=== PATIENT | male | born 1970 | race Caucasian/White ===

== ENCOUNTER 2021-02-04 09:27 | Inpatient (IN) | payer BC ==
[~2021-02-04] VITALS: Ht 182.9 cm; Wt 131.0 kg
[~2021-02-04 09:27] MED LIST: adenosine 3mg/ml 2ml vial IV ONE; atropine 0.1mg/ml 10ml syringe ONE; epiNEPHrine 0.1mg/ml 10ml syringe ONE; sodium bicarbonate (8.4%) 1 mEq/ml syringe ONE
[2021-02-04] MEDS ORDERED: ALBUTEROL INHALER 1 PUFF/90 MCG INHALER IH PRN ×2 (09:40→10:20)
[2021-02-04] MEDS ORDERED: normal saline 1000ML IV soln IVB ONE ×2 (09:40→10:50)
[2021-02-04 10:11] LABS: BASOPHILS % (AUTO) 0.2 % (0-1); EOSINOPHILS % (AUTO) 0 % (0-6); LYMPHOCYTES # (AUTO) 0.3 X10'3 (1.1-4.8); LYMPHOCYTES % (AUTO) 7.3 % (21-51); MEAN CORPUSCULAR HEMOGLOBIN 33.9 PG (27.0-31.0); MEAN CORPUSCULAR HGB CONC 33.6 g/dL (33.0-36.5); MEAN CORPUSCULAR VOLUME 101.2 FL (78-98); MEAN PLATELET VOLUME 10.8 FL (7.4-10.4); MONOCYTES # (AUTO) 0.4 X10'3 (0-0.9); MONOCYTES % (AUTO) 9.2 % (2-12); NEUTROPHILS # (AUTO) 3.6 X10'3 (1.8-7.7); NEUTROPHILS % (AUTO) 83.3 % (42-75); PLATELET COUNT 94 X10'3 (140-440); RED BLOOD COUNT 6.91 X10'6 (4.70-6.10); WHITE BLOOD COUNT 4.3 X10'3 (4.5-11.0)
--- NOTE | 2021-02-04 10:12 | NUR ---
RAPID COVID SWAB PERFORMED. O2 APPLIED AT 4 LPM/NC. PATIENT STILL SAT 88%. FAMILY INFORMED THAT WHEN HE GOES INSIDE, VISITORS ARE NOT ALLOWED WITH R/O OR + COVID PATIENTS. STATES THAT SHE WOULD LIKE TO SPEAK WITH THE DOCTOR ABOUT "HER DEMANDS" PRIOR TO HER GETTING A ROOM INSIDE.
[2021-02-04 10:33] LABS: ALANINE AMINOTRANSFERASE 57 U/L (12-78); ALBUMIN 2.9 G/DL (3.4-5.0); ALBUMIN/GLOBULIN RATIO 0.7 (1.1-1.5); ALKALINE PHOSPHATASE 54 IU/L (46-116); ANION GAP 14 (8-16); ASPARTATE AMINO TRANSFERASE 75 U/L (10-37); BILIRUBIN,TOTAL 0.9 MG/DL (0.1-1.0); BLOOD UREA NITROGEN 26 MG/DL (7-18); BUN/CREATININE RATIO 13.1 (5.4-32.0); C-REACTIVE PROTEIN 15.44 MG/DL (0.0-0.5); CALCIUM 8.5 MG/DL (8.5-10.1); CHLORIDE 96 MMOL/L (99-107); CREATININE 1.98 MG/DL (0.60-1.10); GLUCOSE 178 MG/DL (70-104); POTASSIUM 4.2 MMOL/L (3.5-5.1); SODIUM 135 MMOL/L (135-145); TOTAL CARBON DIOXIDE 25.1 MMOL/L (24-32); TOTAL PROTEIN 7.2 G/DL (6.4-8.2); eGFR 36 ML/MIN
[2021-02-04 10:38] LABS: ABG BASE EXCESS -4.5 mmol/L (-2.0-2.0); ABG HCO3 16.3 mmol/L (22.0-26.0); ABG OXYGEN SATURATION 91.4 % (94-97); ABG PCO2 (T) 23.9 mmHg (35.0-48.0); ABG PO2 (T) 60.8 mmHg (75.0-100.0); ALLEN'S TEST POSITIVE; FCOHb 0.3 % (0.0-3.9); FLOW 4 L/min; FMetHb 0.3 % (0.0-1.5); FO2Hb 90.9 % (94-97); TOTAL HEMOGLOBIN 21.6 G/dl (14.0-18.0)
[2021-02-04 10:48] LABS: HEMATOCRIT 69.9 % (42.0-52.0); HEMOGLOBIN 23.5 g/dl (14.0-17.9)
[2021-02-04] MEDS ORDERED: DEXAMETHASONE 6 MG TABLET PO SCH (11:54)
[2021-02-04 12:11] LABS: ANISOCYTOSIS FEW; LARGE PLATELETS FEW; PLATELET ESTIMATE DECREASED
[2021-02-04] MEDS ORDERED: MULT-1085 PO (12:36)
--- NOTE | 2021-02-04 12:45 | NUR ---
PATIENT HAS ROOM AVAILABLE INSIDE THE ER, BUT FAMILY STATES THAT THEY WILL PREFER TO HAVE HIM SIT OUTSIDE IN RAP UNTIL THEY GET TO SPEAK WITH THE FURNITURE REPAIR TECHNICIAN. PATIENT REMAINS ON 6LPM/NC WITH O2 SATS 92%.
--- NOTE | 2021-02-04 13:22 | NUR ---
ICU UNIX MANAGER IS HERE TO SPEAK WITH PATIENT AND FAMILY IN THE RAP AREA OF ER.
[2021-02-04] MEDS ORDERED: potassium Cl 40MEQ/1/2NS 520ml 520 ML IV PRN ×2 (13:45)
[2021-02-04] MEDS ORDERED: magnesium hydroxide 30ml (MOM) UD suspension PO PRN (13:45)
[2021-02-04] MEDS ORDERED: ondansetron/PF 4mg/2ml inj IV PRN (13:45)
[2021-02-04] MEDS ORDERED: morphine 2 MG/ML inj. syringe IV PRN (13:45)
[2021-02-04] MEDS ORDERED: acetaminophen 325mg tablet PO PRN ×2 (13:45)
[2021-02-04] MEDS ORDERED: morphine 4 MG/ML inj SYRINge IV PRN (13:45)
[2021-02-04] MEDS: K, MAG and/or Phos replacement - Verify level? MC SCH (13:45)
[2021-02-04 14:28] LABS: ABG HCO3 20.5 mmol/L (22.0-26.0); FLOW 10 L/min; TOTAL HEMOGLOBIN > 22.0 G/dl (14.0-18.0)
[2021-02-04] MEDS: normal saline 500ml IV soln 500 ML IV SCH ×3 (14:45→16:45)
[2021-02-04] MEDS ORDERED: enoxaparin 100mg/ml syringe SUBCUT ONE (14:45)
[2021-02-04] MEDS: normal saline 1000ml 1,000 ML IV SCH ×2 (14:45→22:30)
[2021-02-04] MEDS ORDERED: enoxaparin 80mg/0.8ml syringe SUBCUT ONE (15:00)
[2021-02-04] MEDS ORDERED: enoxaparin 30mg/0.3ml syringe SUBCUT ONE (15:05)
[2021-02-04] MEDS ORDERED: LORazepam 2 mg/ml vial IM ONE ×2 (17:25)
[2021-02-04 19:48] LABS: ABG HCO3 18.6 mmol/L (22.0-26.0); ABG PCO2 (T) 41.3 mmHg (35.0-48.0); ABG PO2 (T) 82.3 mmHg (75.0-100.0); FLOW 60 L/min; PATIENT TEMPERATURE 39.8; TOTAL HEMOGLOBIN > 22.0 G/dl (14.0-18.0)
[2021-02-04] MEDS: insulin glargine (Lantus) pen - multi-dose SQ SCH (21:00)
--- NOTE | 2021-02-04 21:15 | NUR ---
Note maurizioismael in EDM - 02/04/21 at 2118 by PAMELLA pt combative and confused, pulling at lines. Currently have patient on high flow tower at 50Lpm and non re-breather 15Lpm. Pt still having difficulty breathing, abg results are favorable. Pt not tolerating bi pap.
--- NOTE | 2021-02-04 21:18 | NUR ---
pt combative and confused, pulling at lines. Currently have patient on high flow tower at 50Lpm and non re-breather 15Lpm. Pt still having difficulty breathing, abg results are favorable. Pt not tolerating bi pap.
--- NOTE | 2021-02-04 21:27 | NUR ---
TELEPHONED ICU MD TO INFORM HIM THAT A DNI ORDER IS NEEDED. HE WILL REVIEW THE CHART IT WAS INFORMED TO HIM THAT THE EARLIER MD HAS IT IN HIS NOTES THAT HE SPOKE WITH THE AND THE DOESN'T WANT INTUBATION. HE SAID TO TAKE PT TO ICU RIGHT NOW.
[2021-02-04] MEDS ORDERED: dexmedetomidin/NS 400mcg/100ml 100 ML IV SCH (22:50)
[2021-02-04 23:00] VITALS: BP 140/66
[2021-02-04] MEDS ORDERED: fentaNYL/PF 50MCG/1 ML 2ML syringe IV PRN (23:00)
[2021-02-04] MEDS ORDERED: rocuronium 10mg/ml inj IV ONE (23:00)
[2021-02-04] MEDS: propofol 1000mg/100ml bottle 100 ML IV SCH (23:00)
[2021-02-04] MEDS ORDERED: etomidate 2mg/ml inj. IV ONE (23:00)
[2021-02-04] MEDS ORDERED: propofol 1000mg/100ml bottle 100 ML IV SCH (23:00)
[2021-02-04] MEDS ORDERED: dexmedetomidin/NS 400mcg/100ml 100 ML IV PRN (23:00)
[2021-02-04] MEDS ORDERED: propofol 1000mg/100ml bottle 100 ML IV ONE (23:00)
[2021-02-04 23:30] VITALS: BP 155/93
[2021-02-04] MEDS ORDERED: ringers solution, lacted 1,000 ML IV SCH (23:45)
[2021-02-05] VITALS (28 sets, daily range): BP systolic 69–157; BP diastolic 6–92
[2021-02-05] MEDS ORDERED: azithromycin/NS 500mg/250ml 250 ML IV SCH
[2021-02-05] MEDS: CefTRIAXone/D5W-Rocephin 1gm 50 ML IV SCH
[2021-02-05 00:25] LABS: ABG BASE EXCESS -7.5 mmol/L (-2.0-2.0); ABG HCO3 25.2 mmol/L (22.0-26.0); ABG PCO2 (T) 82.7 mmHg (35.0-48.0); ABG PO2 (T) 53.4 mmHg (75.0-100.0); FCOHb 0.3 % (0.0-3.9); FMetHb 0.3 % (0.0-1.5); FO2Hb 72.6 % (94-97); PEEP 10 cm H2O; RESPIRATORY RATE 24 b/min; TIDAL VOLUME 450 mL; TOTAL HEMOGLOBIN > 22.0 G/dl (14.0-18.0)
[2021-02-05 00:50] LABS: BASOPHILS % (AUTO) 0.1 % (0-1); EOSINOPHILS % (AUTO) 0 % (0-6); LYMPHOCYTES # (AUTO) 0.3 X10'3 (1.1-4.8); LYMPHOCYTES % (AUTO) 5.8 % (21-51); MEAN CORPUSCULAR HEMOGLOBIN 34.8 PG (27.0-31.0); MEAN CORPUSCULAR HGB CONC 33.7 g/dL (33.0-36.5); MEAN PLATELET VOLUME 10.4 FL (7.4-10.4); MONOCYTES # (AUTO) 0.4 X10'3 (0-0.9); MONOCYTES % (AUTO) 8.4 % (2-12); NEUTROPHILS # (AUTO) 4.4 X10'3 (1.8-7.7); NEUTROPHILS % (AUTO) 85.7 % (42-75); PLATELET COUNT 100 X10'3 (140-440); RED CELL DISTRIBUTION WIDTH 14.1 % (11.5-14.5); WHITE BLOOD COUNT 5.1 X10'3 (4.5-11.0)
[2021-02-05 01:06] LABS: D-DIMER 2.18 MG/L FEU (0-0.50)
[2021-02-05] MEDS: FENTANYL-0.9 % NACL/PF 100 ML IV PRN ×3 (01:11→16:18)
[2021-02-05] MEDS: NORepinephrine 8mg/ 250ml NS 250 ML IV PRN ×2 (01:12→14:01)
[2021-02-05 01:26] LABS: HEMOGLOBIN 22.2 g/dl (14.0-17.9)
[2021-02-05 01:27] LABS: HEMATOCRIT 65.9 % (42.0-52.0)
[2021-02-05 01:43] LABS: ALANINE AMINOTRANSFERASE 51 U/L (12-78); ALBUMIN 2.7 G/DL (3.4-5.0); ALBUMIN/GLOBULIN RATIO 0.6 (1.1-1.5); ALKALINE PHOSPHATASE 61 IU/L (46-116); ANION GAP 11 (8-16); ASPARTATE AMINO TRANSFERASE 86 U/L (10-37); BILIRUBIN,TOTAL 0.8 MG/DL (0.1-1.0); BLOOD UREA NITROGEN 40 MG/DL (7-18); BUN/CREATININE RATIO 14.7 (5.4-32.0); C-REACTIVE PROTEIN 15.42 MG/DL (0.0-0.5); CALCIUM 7.3 MG/DL (8.5-10.1); CHLORIDE 101 MMOL/L (99-107); CREATININE 2.72 MG/DL (0.60-1.10); GLUCOSE 201 MG/DL (70-104); SODIUM 138 MMOL/L (135-145); TOTAL CARBON DIOXIDE 25.9 MMOL/L (24-32); TRIGLYCERIDES 106 MG/DL (20-135); eGFR 25 ML/MIN
[2021-02-05 01:58] LABS: FERRITIN 1678 NG/ML (26-388); LACTATE DEHYDROGENASE 707 U/L (85-227)
[2021-02-05 02:00] LABS: POTASSIUM 6.4 MMOL/L (3.5-5.1)
[2021-02-05] MEDS ORDERED: ringers solution, lacted 1,000 ML IV ONE (03:00)
[2021-02-05] MEDS ORDERED: sodium bicarbonate (8.4%) 1 mEq/ml syringe IV ONE (03:05)
[2021-02-05 03:24] LABS: ABG HCO3 18.5 mmol/L (22.0-26.0); ABG PCO2 (T) 53.7 mmHg (35.0-48.0); ABG PO2 (T) 43.3 mmHg (75.0-100.0); FCOHb 0.4 % (0.0-3.9); FMetHb 0.1 % (0.0-1.5); FO2Hb 66.7 % (94-97); PEEP 12 cm H2O; RESPIRATORY RATE 30 b/min; TIDAL VOLUME 500 mL; TOTAL HEMOGLOBIN > 22.0 G/dl (14.0-18.0)
[2021-02-05] MEDS: vasopressin inj. 40 UNIT in normal saline 50ml IV soln 38 ML IV SCH (04:30)
--- NOTE | 2021-02-05 06:00 | NUR ---
Patient arrived to floor about 22:45 on Bi-pap @ 100%. Patients SpO2 70-90% Patient intubated at 2308 by ER MD. patient continued to struggle with oxygenation. Patient required line placement to give eds and evaluate fluid status. First line in groin unsuccessful and replaced in right I.J. Upon xray of lines a pnumothorax noted. Er MD placed chest tube. end of shift patients SpO2 remains in 70s. Report given to Cali DIEGO. Spoke to at 0730.
[2021-02-05] MEDS: normal saline 1000ml 1,000 ML IV SCH ×4 (06:45→16:51)
[2021-02-05] MEDS ORDERED: dextrose ORAL solution 15 GM/59 ML bottle PO PRN ×2 (07:00)
[2021-02-05] MEDS ORDERED: glucagon, human recombinant 1mg kit SUBCUT PRN (07:00)
[2021-02-05] MEDS ORDERED: dextrose 50%-water 50ml dispensing syringe IV PRN ×2 (07:00)
[2021-02-05 07:10] LABS: BASOPHILS % (AUTO) 0.2 % (0-1); EOSINOPHILS % (AUTO) 0 % (0-6); LYMPHOCYTES # (AUTO) 0.4 X10'3 (1.1-4.8); LYMPHOCYTES % (AUTO) 3.4 % (21-51); MEAN CORPUSCULAR HEMOGLOBIN 34.7 PG (27.0-31.0); MEAN CORPUSCULAR HGB CONC 33.7 g/dL (33.0-36.5); MEAN CORPUSCULAR VOLUME 102.8 FL (78-98); MEAN PLATELET VOLUME 10.1 FL (7.4-10.4); MONOCYTES # (AUTO) 0.6 X10'3 (0-0.9); MONOCYTES % (AUTO) 5.7 % (2-12); NEUTROPHILS # (AUTO) 9.6 X10'3 (1.8-7.7); NEUTROPHILS % (AUTO) 90.7 % (42-75); PLATELET COUNT 112 X10'3 (140-440); RED BLOOD COUNT 6.21 X10'6 (4.70-6.10); RED CELL DISTRIBUTION WIDTH 14.2 % (11.5-14.5); WHITE BLOOD COUNT 10.6 X10'3 (4.5-11.0)
[2021-02-05 07:19] LABS: HEMOGLOBIN 21.5 g/dl (14.0-17.9)
[2021-02-05 07:20] LABS: HEMATOCRIT 63.8 % (42.0-52.0)
[2021-02-05] MEDS: insulin Lispro (HumaLOG) vial - multi-dose SQ SCH ×2 (07:21→13:53)
[2021-02-05] MEDS: dexamethasone 4mg/ml inj IV SCH ×2 (07:21→20:05)
[2021-02-05 07:22] LABS: ALBUMIN 2.2 G/DL (3.4-5.0); ANION GAP 13 (8-16); BLOOD UREA NITROGEN 48 MG/DL (7-18); BUN/CREATININE RATIO 17.4 (5.4-32.0); CALCIUM 6.6 MG/DL (8.5-10.1); CHLORIDE 103 MMOL/L (99-107); CREATININE 2.76 MG/DL (0.60-1.10); GLUCOSE 249 MG/DL (70-104); SODIUM 137 MMOL/L (135-145); TOTAL CARBON DIOXIDE 21.1 MMOL/L (24-32); TRIGLYCERIDES 92 MG/DL (20-135); eGFR 24 ML/MIN
[2021-02-05] MEDS ORDERED: famotidine 10mg/ml inj IV SCH (08:00)
[2021-02-05] MEDS: K, MAG and/or Phos replacement - Verify level? MC SCH (08:00)
[2021-02-05] MEDS: famotidine/PF 10 mg/ml inj IV SCH (08:54)
[2021-02-05] MEDS: propofol 1000mg/100ml bottle 100 ML IV SCH (08:55)
[2021-02-05] MEDS: dexmedetomidin/NS 400mcg/100ml 100 ML IV SCH ×4 (08:59→18:51)
[2021-02-05] MEDS: CISatracurium besylate inj. 100 MG in normal saline 100ml IV soln 90 ML IV PRN ×3 (09:00→15:14)
[2021-02-05 10:33] LABS: ABG BASE EXCESS -5.4 mmol/L (-2.0-2.0); ABG HCO3 20.2 mmol/L (22.0-26.0); ABG OXYGEN SATURATION 84.1 % (94-97); ABG PCO2 (T) 41.8 mmHg (35.0-48.0); FCOHb 0.3 % (0.0-3.9); FMetHb 0.5 % (0.0-1.5); FO2Hb 83.4 % (94-97); PATIENT TEMPERATURE 37.9; TOTAL HEMOGLOBIN 21.5 G/dl (14.0-18.0)
[2021-02-05] MEDS ORDERED: acetaminophen 325mg/10.15ml oral unit dose solution PO PRN (10:55)
--- NOTE | 2021-02-05 11:00 | NUR ---
Dr. Mancia notified about temperature of 40.5 degrees Celsius; orders for IV Tylenol and PO to follow. Patient also packed in ice. MD also aware of critical H/H and Potassium trending downwards; orders to continue monitoring. MD aware of improved pH, but low o2 saturation; will place patient on rotoprone bed.
[2021-02-05] MEDS ORDERED: acetaminophen 1,000mg/100ml IV 100 ML IV ONE (11:15)
[2021-02-05] MEDS ORDERED: bisacodyl 10mg suppository rectal RC ONE (11:20)
[2021-02-05 11:37] LABS: MEAN CORPUSCULAR HEMOGLOBIN 34.3 PG (27.0-31.0); MEAN CORPUSCULAR HGB CONC 33.6 g/dL (33.0-36.5); PLATELET COUNT 107 X10'3 (140-440); RED BLOOD COUNT 6.09 X10'6 (4.70-6.10); RED CELL DISTRIBUTION WIDTH 14.3 % (11.5-14.5); WHITE BLOOD COUNT 8.8 X10'3 (4.5-11.0)
[2021-02-05 11:41] LABS: HEMATOCRIT 62.1 % (42.0-52.0); HEMOGLOBIN 20.9 g/dl (14.0-17.9)
[2021-02-05] MEDS: midazolam 100mg in NS 100ml 100 ML IV PRN (12:08)
--- NOTE | 2021-02-05 12:16 | NUR ---
Initial: Pt admit for COVID with hypoxemic respiratory failure. Pt intubated and sedated at this time, documented with an OG tube in place though no TF consult at this time. TF recommendations below for if expected prolonged intubation and to receive nutrition support. Noted pt currently receiving Propofol at 3.57 mL/hr providing ~94 kcal/day at this rate. TF recommendations will be adjusted based on Propofol rate at the time of TF initiation IF to start TF. Noted pt with A1c 7.0% though no documented PMH of DM in EMR. Pt would benefit from DM education following extubation once stable though will need official DM diagnosis by physician prior to RD education IF this is a new diagnosis. Pt with a low Abram of 9, with generalized 1+ trace edema and skin intact per physical assessment. No documented BM since admit, pt started on routine bowel care today. Will continue to follow closely. Recommendations: 1) IF TF, continuous Vital High Protein with goal rate of 90 mL/hr. To begin at 30 mL/hr and advance by 20 mL Q8H as tolerated to goal rate. Once at goal to provide 2160 mL total volume/day, 2160 kcal, 189 g protein, and 1806 mL water 2) IF TF, monitor Propofol rate and adjust TF recommendations as appropriate 3) IF TF, monitor serum Na for water flush recommendations 4) IF TF, prealbumin q Monday/, daily scaled weights 5) Routine bowel care 6) DM education once stable following extubation, A1c 7.0%. Will need official DM dx by physician prior to RD education IF this is a new dx. Currently no PMH of DM in EMR Addendum: 02/05/21 at [address] Amended: Links added.
[2021-02-05] MEDS: bisacodyl 10mg suppository rectal RC SCH (12:25)
[2021-02-05 13:49] LABS: HIV ANTIBODY 1&2 RAPID NON-REACTIVE (Neg)
[2021-02-05] MEDS: enoxaparin 40mg/0.4ml syringe SQ SCH ×2 (13:54→20:06)
--- NOTE | 2021-02-05 15:30 | NUR ---
Dr. Mancia rounding on patient and aware temperature remains at 40.1 despite IV Tylenol and ice packing. Orders for cooling blanket and continue PO Tylenol. Also, MD aware urine output 30-60ml/hour; orders for 500ml bolus; continue rechecking Lactic Acid until less than 2.0. Dr. Mancia also noting decreased o2 sat at 88%. MD at bedside to change PEEP to 15; no major changes noted in air-leak; orders to recheck ABG in 2h and check chest x-ray.
[2021-02-05] MEDS ORDERED: normal saline 500ml IV soln 500 ML IV ONE (15:50)
--- NOTE | 2021-02-05 16:00 | NUR ---
Cooling blanket placed on patient
[2021-02-05 16:53] LABS: CLARITY,URINE TURBID (Clear); COLOR,URINE YELLOW (Yellow); PH,URINE 5.5 (4.8-8.0); UA COLLECTION TYPE FOLEY CATH
[2021-02-05 16:54] LABS: GLUCOSE, URINE NEGATIVE (Neg); KETONES,URINE NEGATIVE (Neg); LEUKOCYTE ESTERASE ,URINE NEGATIVE (Neg); NITRITES, URINE NEGATIVE (Neg); OCCULT BLOOD,URINE LARGE (Neg); PROTEIN,URINE 300 mg/dl (Neg); UROBILINOGEN,URINE 0.2 E.U/dL (0.2-1.0)
[2021-02-05 16:58] LABS: AMORPHOUS URATES 2+; BACTERIA,URINE FEW /HPF (Neg); MUCUS STRANDS MODERATE /LPF (Neg); SQUAMOUS EPITHELIAL CELL,UR FEW /LPF (FEW)
[2021-02-05 16:59] LABS: WAXY CASTS,URINE 0-3 /LPF (NEGATIVE)
[2021-02-05 17:26] LABS: ABG BASE EXCESS -3.8 mmol/L (-2.0-2.0); ABG HCO3 20.4 mmol/L (22.0-26.0); ABG OXYGEN SATURATION 87.9 % (94-97); ABG PCO2 (T) 41.2 mmHg (35.0-48.0); ABG PO2 (T) 70.1 mmHg (75.0-100.0); FCOHb 0.3 % (0.0-3.9); FMetHb 0.4 % (0.0-1.5); FO2Hb 87.3 % (94-97); PATIENT TEMPERATURE 40.3; RESPIRATORY RATE 30 b/min; TIDAL VOLUME 500 mL; TOTAL HEMOGLOBIN > 22.0 G/dl (14.0-18.0)
--- NOTE | 2021-02-05 18:03 | NUR ---
Family updated on recent findings of EF/A1C and plan for Rotoprone bed. Family agreeable and appreciates the update; still would like to hold off on Remdesivir.
--- NOTE | 2021-02-05 18:26 | NUR ---
Problems reprioritized. Patient report given, questions answered & plan of care reviewed with Nito DIEGO.
[2021-02-05] MEDS: lactobacillus rhamnosus 10,000 MMU CELLS/CAPSULE PO SCH (20:05)
[2021-02-05] MEDS: docusate sodium 100mg/10ml UD cup PO SCH (20:05)
[2021-02-05] MEDS ORDERED: acetaminophen 1,000mg/100ml IV 100 ML IV PRN (23:30)
[2021-02-06] VITALS (24 sets, daily range): BP systolic 80–126; BP diastolic 33–87
[2021-02-06] MEDS: NORepinephrine 8mg/ 250ml NS 250 ML IV PRN
[2021-02-06] MEDS: CefTRIAXone/D5W-Rocephin 1gm 50 ML IV SCH
[2021-02-06] MEDS ORDERED: propofol 1000mg/100ml bottle 100 ML IV ONE (00:04)
[2021-02-06] MEDS: midazolam 100mg in NS 100ml 100 ML IV PRN ×2 (01:00→16:58)
[2021-02-06] MEDS: dexmedetomidin/NS 400mcg/100ml 100 ML IV SCH ×3 (01:00→10:07)
[2021-02-06] MEDS: normal saline 1000ml 1,000 ML IV SCH ×3 (01:00→22:55)
[2021-02-06] MEDS: CISatracurium besylate inj. 100 MG in normal saline 100ml IV soln 90 ML IV PRN ×8 (02:00→21:04)
[2021-02-06] MEDS: mineral oil/petrolatum ophthal oint EACHEYE SCH ×4 (02:00→20:58)
[2021-02-06] MEDS: insulin Lispro (HumaLOG) vial - multi-dose SQ SCH ×5 (02:59→21:32)
[2021-02-06 03:30] LABS: BASOPHILS % (AUTO) 0 % (0-1); EOSINOPHILS % (AUTO) 0 % (0-6); LYMPHOCYTES # (AUTO) 0.4 X10'3 (1.1-4.8); LYMPHOCYTES % (AUTO) 5.7 % (21-51); MEAN CORPUSCULAR HEMOGLOBIN 34.2 PG (27.0-31.0); MEAN CORPUSCULAR HGB CONC 32.9 g/dL (33.0-36.5); MEAN CORPUSCULAR VOLUME 104.2 FL (78-98); MEAN PLATELET VOLUME 10.4 FL (7.4-10.4); MONOCYTES # (AUTO) 0.8 X10'3 (0-0.9); MONOCYTES % (AUTO) 10.1 % (2-12); NEUTROPHILS # (AUTO) 6.4 X10'3 (1.8-7.7); NEUTROPHILS % (AUTO) 84.2 % (42-75); PLATELET COUNT 117 X10'3 (140-440); RED BLOOD COUNT 6.06 X10'6 (4.70-6.10); RED CELL DISTRIBUTION WIDTH 14.9 % (11.5-14.5); WHITE BLOOD COUNT 7.7 X10'3 (4.5-11.0)
[2021-02-06 03:35] LABS: HEMATOCRIT 63.2 % (42.0-52.0); HEMOGLOBIN 20.8 g/dl (14.0-17.9)
[2021-02-06 03:41] LABS: D-DIMER 0.72 MG/L FEU (0-0.50)
[2021-02-06] MEDS: FENTANYL-0.9 % NACL/PF 100 ML IV PRN ×5 (03:56→21:35)
[2021-02-06 04:03] LABS: ALBUMIN 1.8 G/DL (3.4-5.0); ANION GAP 9 (8-16); BLOOD UREA NITROGEN 66 MG/DL (7-18); BUN/CREATININE RATIO 17.1 (5.4-32.0); CHLORIDE 109 MMOL/L (99-107); CREATININE 3.87 MG/DL (0.60-1.10); GLUCOSE 207 MG/DL (70-104); POTASSIUM 5.7 MMOL/L (3.5-5.1); SODIUM 141 MMOL/L (135-145); TOTAL CARBON DIOXIDE 22.8 MMOL/L (24-32); eGFR 16 ML/MIN
[2021-02-06 04:05] LABS: CALCIUM 5.9 MG/DL (8.5-10.1)
[2021-02-06] MEDS ORDERED: CALCIUM GLUC 1gm/50ml NACL,iso 50 ML IV ONE (04:45)
[2021-02-06 04:51] LABS: ABG BASE EXCESS -6.9 mmol/L (-2.0-2.0); ABG OXYGEN SATURATION 75.1 % (94-97); ABG PCO2 (T) 55.2 mmHg (35.0-48.0); ABG PO2 (T) 53.4 mmHg (75.0-100.0); FMetHb 0.2 % (0.0-1.5); FO2Hb 74.9 % (94-97); PATIENT TEMPERATURE 39.4; PEEP 15 cm H2O; RESPIRATORY RATE 30 b/min; TIDAL VOLUME 500 mL; TOTAL HEMOGLOBIN > 22.0 G/dl (14.0-18.0)
[2021-02-06] MEDS: famotidine/PF 10 mg/ml inj IV SCH (07:36)
[2021-02-06] MEDS: docusate sodium 100mg/10ml UD cup PO SCH ×2 (07:36→20:00)
[2021-02-06] MEDS: dexamethasone 4mg/ml inj IV SCH ×2 (07:36→20:57)
[2021-02-06] MEDS: enoxaparin 40mg/0.4ml syringe SQ SCH ×2 (07:36→20:57)
[2021-02-06] MEDS: lactobacillus rhamnosus 10,000 MMU CELLS/CAPSULE PO SCH ×2 (07:36→20:58)
[2021-02-06] MEDS ORDERED: rocuronium 10mg/ml inj IV ONE (08:00)
[2021-02-06] MEDS ORDERED: sod chloride 0.9% 10ml flush syringe IV ONE (08:00)
[2021-02-06] MEDS: K, MAG and/or Phos replacement - Verify level? MC SCH (08:00)
[2021-02-06] MEDS ORDERED: etomidate 2mg/ml inj. ONE (08:00)
--- NOTE | 2021-02-06 08:54 | NUR ---
Malnutrition consult: Unsure of wt loss though with decreased appetite per malnutrition risk screen with RN. Unable to obtain information from pt at this time as pt currently intubated. No wt hx in EMR, current scaled weight is 147% IBW. Pt receiving nutrition support to meet estimated nutrient needs. Pt documented with flaccid muscle strength though pt paralyzed per physical assessment. No documented significant edema. Pt possibly with some changes in appetite and PO intake MATERIALS PLANNER r/t COVID though currently lacks a minimum of two criteria for malnutrition. Will continue to follow and monitor qualifying criteria for malnutrition. Addendum: 02/06/21 at [address] Amended: Links added.
--- NOTE | 2021-02-06 10:09 | NUR ---
Patient MRSA positive in the Nares; will notify
[2021-02-06 11:18] LABS: ABG BASE EXCESS -8.6 mmol/L (-2.0-2.0); ABG HCO3 18.2 mmol/L (22.0-26.0); ABG PCO2 (T) 43.4 mmHg (35.0-48.0); ABG PO2 (T) 50.2 mmHg (75.0-100.0); FCOHb 0.3 % (0.0-3.9); FMetHb 0.3 % (0.0-1.5); FO2Hb 80.5 % (94-97); PATIENT TEMPERATURE 37.4; PEEP 15 cm H2O; RESPIRATORY RATE 30 b/min; TIDAL VOLUME 500 mL; TOTAL HEMOGLOBIN > 22.0 G/dl (14.0-18.0)
[2021-02-06 11:23] LABS: C-REACTIVE PROTEIN 14.55 MG/DL (0.0-0.5); LACTATE DEHYDROGENASE 882 U/L (85-227)
[2021-02-06] MEDS ORDERED: polyethylene glycol 3350 17gm powd pack PO ONE (12:00)
[2021-02-06] MEDS ORDERED: normal saline 500ml IV soln 500 ML IV ONE (12:00)
--- NOTE | 2021-02-06 12:17 | NUR ---
Discussed with Dr. Mancia patient's o2 status and ABG results; she would like to try proning the patient again by D/C'ing the Precedex and titrating the Versed up. MD aware that BIS monitor has been in the 20s. Also, Dr. Mancia would like to pull back on the chest tube to see if there is improvement; MD aware of radiology readings; the air leak in the chest tube persists. Dr. Mancia aware the urine output has been 30-50ml/hour; orders for 500ml bolus NS and start Dobutamine if no improvement noted.
[2021-02-06] MEDS: DOBUTamine-DoBUTrex 500mg/D5W 250 ML IV SCH (12:41)
--- NOTE | 2021-02-06 13:30 | NUR ---
Cooling blanket turned off; core temp at 36.6
[2021-02-06 14:20] LABS: CALCIUM 6.4 MG/DL (8.5-10.1)
[2021-02-06 14:52] LABS: ANION GAP 13 (8-16); BLOOD UREA NITROGEN 80 MG/DL (7-18); BUN/CREATININE RATIO 21.1 (5.4-32.0); CHLORIDE 111 MMOL/L (99-107); CREATININE 3.79 MG/DL (0.60-1.10); GLUCOSE 218 MG/DL (70-104); MAGNESIUM 2.6 MG/DL (1.5-2.4); PHOSPHORUS 4.6 MG/DL (2.3-4.5); POTASSIUM 5.7 MMOL/L (3.5-5.1); SODIUM 142 MMOL/L (135-145); TOTAL CARBON DIOXIDE 18.3 MMOL/L (24-32); eGFR 17 ML/MIN
[2021-02-06] MEDS ORDERED: iohexol 350MG/ML 100ml bottle IV ONE (17:11)
--- NOTE | 2021-02-06 17:30 | NUR ---
Dr. Mancia at bedside and repositioned the left chest tube pulling some out and placing a right chest tube. Per radiologist, possible aortic dissection. STAT CTA ordered. Since patient did not tolerate prone, orders to d/c rotoprone bed and place patient on standard Chin bed.
--- NOTE | 2021-02-06 18:20 | NUR ---
Patient in room CICU 2012. I have received report from JOHNATHON Leiva and had the opportunity to ask questions and assume patient care. Patient returned from CT with RT in attendance. Patient transferred placed back on bedside monitor showing sinus rhythm, art line with good wave form adequate BP. Patient on the ventilator 100% FiO2 PEEP of 15. Air leak around ET Tube noted. Cuff pressure checked, continue to have cuff leak, decreased volumes. RT paged. ET tube vega changed out with improved volumes and decreased cuff leak. Tube secured at 24cm at the teeth.
--- NOTE | 2021-02-06 18:45 | NUR ---
Patient back from CT and placed on bedside monitor. Report given to Roxana DIEGO with all questions answered.
[2021-02-06] MEDS: polyethylene glycol 3350 17gm powd pack PO SCH (20:28)
[2021-02-06] MEDS: insulin glargine (Lantus) pen - multi-dose SQ SCH (21:33)
[2021-02-07] VITALS (29 sets, daily range): BP systolic 63–141; BP diastolic 41–76
[2021-02-07] MEDS: CefTRIAXone/D5W-Rocephin 1gm 50 ML IV SCH (00:06)
[2021-02-07] MEDS: CISatracurium besylate inj. 100 MG in normal saline 100ml IV soln 90 ML IV PRN ×5 (00:10→21:49)
[2021-02-07] MEDS: midazolam 100mg in NS 100ml 100 ML IV PRN ×3 (01:14→11:41)
[2021-02-07] MEDS: FENTANYL-0.9 % NACL/PF 100 ML IV PRN ×6 (01:15→22:35)
[2021-02-07] MEDS: mineral oil/petrolatum ophthal oint EACHEYE SCH ×4 (01:21→20:46)
[2021-02-07] MEDS: insulin Lispro (HumaLOG) vial - multi-dose SQ SCH ×4 (02:31→21:54)
[2021-02-07] MEDS: vasopressin inj. 40 UNIT in normal saline 50ml IV soln 38 ML IV SCH ×3 (03:00→19:33)
[2021-02-07 03:35] LABS: EOSINOPHILS % (AUTO) 0 % (0-6); LYMPHOCYTES # (AUTO) 0.4 X10'3 (1.1-4.8); MONOCYTES # (AUTO) 0.5 X10'3 (0-0.9); NEUTROPHILS # (AUTO) 5.8 X10'3 (1.8-7.7)
[2021-02-07 03:37] LABS: BASOPHILS % (AUTO) 0.1 % (0-1); HEMATOCRIT 59.7 % (42.0-52.0); LYMPHOCYTES % (AUTO) 6.1 % (21-51); MEAN CORPUSCULAR HEMOGLOBIN 35.1 PG (27.0-31.0); MEAN CORPUSCULAR HGB CONC 33.9 g/dL (33.0-36.5); MEAN CORPUSCULAR VOLUME 103.6 FL (78-98); MEAN PLATELET VOLUME 11.1 FL (7.4-10.4); MONOCYTES % (AUTO) 7.6 % (2-12); NEUTROPHILS % (AUTO) 86.2 % (42-75); PLATELET COUNT 105 X10'3 (140-440); RED BLOOD COUNT 5.76 X10'6 (4.70-6.10); RED CELL DISTRIBUTION WIDTH 14.8 % (11.5-14.5); WHITE BLOOD COUNT 6.8 X10'3 (4.5-11.0)
[2021-02-07 03:59] LABS: ABG BASE EXCESS -6.7 mmol/L (-2.0-2.0); ABG HCO3 21.9 mmol/L (22.0-26.0); ABG OXYGEN SATURATION 81.6 % (94-97); ABG PCO2 (T) 51.6 mmHg (35.0-48.0); ABG PO2 (T) 48.1 mmHg (75.0-100.0); FCOHb 0.3 % (0.0-3.9); FMetHb 0.3 % (0.0-1.5); FO2Hb 81.1 % (94-97); PEEP 15 cm H2O; RESPIRATORY RATE 30 b/min; TIDAL VOLUME 500 mL
[2021-02-07 04:07] LABS: HEMOGLOBIN 20.2 g/dl (14.0-17.9)
[2021-02-07 04:29] LABS: ANISOCYTOSIS FEW; LARGE PLATELETS FEW; PLATELET ESTIMATE DECREASED
--- NOTE | 2021-02-07 05:00 | NUR ---
Rounds with Dr. Tran. current ABG with critical values and current lab, vent settings and IV medication rates reviewed with MD. Change order to increase Dobutamine to 5 mcg/kg/min.
--- NOTE | 2021-02-07 05:32 | NUR ---
Chemistry panel pending results. Lab draw needed to be redrawn. Per pharmacy okay to hold Vancomycin dose until Chemistry panel results to confirm renal function.
[2021-02-07 05:48] LABS: ALBUMIN 1.8 G/DL (3.4-5.0); ANION GAP 8 (8-16); BLOOD UREA NITROGEN 86 MG/DL (7-18); BUN/CREATININE RATIO 20.5 (5.4-32.0); C-REACTIVE PROTEIN 8.79 MG/DL (0.0-0.5); CALCIUM 6.4 MG/DL (8.5-10.1); CHLORIDE 112 MMOL/L (99-107); CREATININE 4.19 MG/DL (0.60-1.10); GLUCOSE 198 MG/DL (70-104); MAGNESIUM 2.6 MG/DL (1.5-2.4); PHOSPHORUS 5.4 MG/DL (2.3-4.5); POTASSIUM 5.4 MMOL/L (3.5-5.1); SODIUM 144 MMOL/L (135-145); TOTAL CARBON DIOXIDE 23.6 MMOL/L (24-32); eGFR 15 ML/MIN
--- NOTE | 2021-02-07 06:24 | NUR ---
Problems reprioritized. Patient report given, questions answered & plan of care reviewed with JOHNATHON Arshad.
[2021-02-07] MEDS ORDERED: vasopressin inj. 40 UNIT in normal saline 50ml IV soln 38 ML IV SCH (07:55)
[2021-02-07] MEDS: K, MAG and/or Phos replacement - Verify level? MC SCH (08:00)
[2021-02-07] MEDS ORDERED: vancomycin/NS 1 GM ADD-VANTAGE 250 ML X 1 DOSE IV PRN (08:10)
[2021-02-07] MEDS: adenosine 3mg/ml 2ml vial IV PRN (08:18)
[2021-02-07] MEDS: docusate sodium 100mg/10ml UD cup PO SCH ×3 (09:17→20:48)
[2021-02-07] MEDS: famotidine/PF 10 mg/ml inj IV SCH (09:17)
[2021-02-07] MEDS: enoxaparin 40mg/0.4ml syringe SQ SCH ×2 (09:17→20:47)
[2021-02-07] MEDS: lactobacillus rhamnosus 10,000 MMU CELLS/CAPSULE PO SCH ×2 (09:18→20:46)
[2021-02-07] MEDS ORDERED: amiodarone/D5 360MG/200ML BAG 200 ML IV ONE ×2 (11:19→15:10)
[2021-02-07] MEDS ORDERED: digoxin 250mcg/ml 2ml ampule IV ONE ×2 (11:45→23:55)
[2021-02-07] MEDS: DOBUTamine-DoBUTrex 500mg/D5W 250 ML IV SCH (12:01)
[2021-02-07] MEDS: dexamethasone 4mg/ml inj IV SCH ×2 (12:16→20:46)
--- NOTE | 2021-02-07 13:47 | NUR ---
Am Nursing note. 0830 pt converted to svt, afib with RVR o2 sats dropped to 70's pt manually bagged at 100% FIO2x 20 mmin,, bolus 1l Ns started and Increased Levo to .1 mcg/kg/min and then to 1.5 mcg/kg/min. Md ordered Adenosine 6mg with rapid NS flush to be followed by 12 mg with rapid NS flush if it was not effective. Neither dose had any effect on the rhythm. Vasopressin was started at 0.04 units /min. Synch cardioversion ordered 50j ineffective, 100j converted to ST @ 115-125, svt return with low bp and drop in sats necessitated repeated cardioversions. Amiodorone bolus was started and pt 's tacchycardia has again dropped his pressure ans satureaion necessitating another cardioversion, this one has so far held him in st 110's. with Amiodorone drip to follow, this seems to have helped sustain sinus rhythm with adequate bP. Dr Dahl was called and Digoxin bolus of 500 mcg given to be followed by 250 mcg x 2 doses. Pt presently stable but his status is tenuous at this time.
[2021-02-07] MEDS: normal saline 1000ml 1,000 ML IV SCH ×2 (14:45→22:29)
[2021-02-07] MEDS ORDERED: amiodarone/D5 360MG/200ML BAG 200 ML IV SCH (15:05)
[2021-02-07] MEDS ORDERED: albumin (Human) 5% 250ml 250 ML IV ONE ×2 (15:05→15:10)
[2021-02-07] MEDS: amiodarone/D5 360MG/200ML BAG 200 ML IV SCH ×2 (15:10→21:14)
[2021-02-07 16:01] LABS: ABG HCO3 21.5 mmol/L (22.0-26.0); ABG OXYGEN SATURATION 74.1 % (94-97); ABG PCO2 (T) 74.9 mmHg (35.0-48.0); ABG PO2 (T) 48.2 mmHg (75.0-100.0); FCOHb 0.3 % (0.0-3.9); FMetHb 0.3 % (0.0-1.5); FO2Hb 73.7 % (94-97); PATIENT TEMPERATURE 37.2; PEEP 15 cm H2O; RESPIRATORY RATE 30 b/min; TIDAL VOLUME 500 mL; TOTAL HEMOGLOBIN 21.8 G/dl (14.0-18.0)
[2021-02-07] MEDS ORDERED: digoxin 250mcg/ml 2ml ampule IV STA (18:14)
--- NOTE | 2021-02-07 18:30 | NUR ---
Patient in room CICU 2013. I have received report from JOHNATHON Arshad and had the opportunity to ask questions and assume patient care.
--- NOTE | 2021-02-07 18:50 | NUR ---
Left chest tube dressing found to be saturated with serosanguineous fluid. No air leak noted. minimal output noted on day shift. Tidal volumes on ventilator 350-380. Dr. Mancia called to bedside to assess. removed dressings over each chest tube. No clot noted, no issues found. RN redressed with vasaline gauze and taped with gauze and silk tape. Stat chest x-ray ordered.
[2021-02-07] MEDS: NORepinephrine 8mg/ 250ml NS 250 ML IV PRN (20:04)
[2021-02-07] MEDS: polyethylene glycol 3350 17gm powd pack PO SCH ×2 (20:48→21:00)
[2021-02-07] MEDS: insulin glargine (Lantus) pen - multi-dose SQ SCH (21:55)
--- NOTE | 2021-02-07 23:08 | NUR ---
Dr. Gonsalez called re: decreased urine output to 10 ml/hr over last few hours. She would like a renal consult for the morning. No new orders at this time.
[2021-02-08] VITALS (24 sets, daily range): BP systolic 90–158; BP diastolic 48–70
[2021-02-08] MEDS: amiodarone/D5 360MG/200ML BAG 200 ML IV SCH ×4 (00:09→21:30)
[2021-02-08] MEDS: NORepinephrine 8mg/ 250ml NS 250 ML IV PRN ×3 (00:48→13:49)
[2021-02-08] MEDS: mineral oil/petrolatum ophthal oint EACHEYE SCH ×4 (01:21→20:13)
[2021-02-08] MEDS: DOBUTamine-DoBUTrex 500mg/D5W 250 ML IV SCH ×2 (01:51→15:43)
[2021-02-08] MEDS: CISatracurium besylate inj. 100 MG in normal saline 100ml IV soln 90 ML IV PRN ×6 (01:53→21:35)
[2021-02-08] MEDS: FENTANYL-0.9 % NACL/PF 100 ML IV PRN ×5 (01:55→22:11)
--- NOTE | 2021-02-08 02:00 | NUR ---
Patients wedding ring causing lack of circulation to finger. Ring was cut off. placed in bag with patients belongings.
[2021-02-08] MEDS: insulin Lispro (HumaLOG) vial - multi-dose SQ SCH ×4 (02:42→21:17)
[2021-02-08] MEDS: VANCOMYCIN LEVEL IV SCH (03:00)
[2021-02-08 03:14] LABS: ABG BASE EXCESS -14.7 mmol/L (-2.0-2.0); ABG HCO3 15.8 mmol/L (22.0-26.0); ABG OXYGEN SATURATION 82.8 % (94-97); ABG PCO2 (T) 52.5 mmHg (35.0-48.0); ABG PO2 (T) 53.1 mmHg (75.0-100.0); FCOHb 0.3 % (0.0-3.9); FMetHb 0.3 % (0.0-1.5); FO2Hb 82.3 % (94-97); PATIENT TEMPERATURE 36.6; PEEP 15 cm H2O; RESPIRATORY RATE 30 b/min; TIDAL VOLUME 500 mL; TOTAL HEMOGLOBIN 20.5 G/dl (14.0-18.0)
[2021-02-08 03:18] LABS: D-DIMER 1.38 MG/L FEU (0-0.50)
[2021-02-08 03:25] LABS: ALBUMIN 2.1 G/DL (3.4-5.0); ANION GAP 11 (8-16); BLOOD UREA NITROGEN 94 MG/DL (7-18); BUN/CREATININE RATIO 15.1 (5.4-32.0); C-REACTIVE PROTEIN 5.28 MG/DL (0.0-0.5); CHLORIDE 107 MMOL/L (99-107); CREATININE 6.22 MG/DL (0.60-1.10); GLUCOSE 276 MG/DL (70-104); MAGNESIUM 2.7 MG/DL (1.5-2.4); SODIUM 137 MMOL/L (135-145); TOTAL CARBON DIOXIDE 19.2 MMOL/L (24-32); VANCOMYCIN,TROUGH 15.2 UG/ML (6.0-14.0); eGFR 10 ML/MIN
[2021-02-08 03:29] LABS: POTASSIUM 7.5 MMOL/L (3.5-5.1)
[2021-02-08 03:30] LABS: BASOPHILS % (AUTO) 0.1 % (0-1); EOSINOPHILS % (AUTO) 0 % (0-6); LYMPHOCYTES # (AUTO) 0.2 X10'3 (1.1-4.8); MEAN CORPUSCULAR HEMOGLOBIN 34.4 PG (27.0-31.0); NEUTROPHILS # (AUTO) 8.7 X10'3 (1.8-7.7)
--- NOTE | 2021-02-08 03:32 | NUR ---
Dr. Gonsalez called for Critical labs: K 7.5, Ca 6.0, Current ABG results. Orders received for treatment of Hyperkalemia. Repeat K lab after treatment is complete. Patient will need nephrology consult today.
[2021-02-08 03:33] LABS: LYMPHOCYTES % (AUTO) 2.1 % (21-51); MEAN CORPUSCULAR HGB CONC 32.9 g/dL (33.0-36.5); MEAN CORPUSCULAR VOLUME 104.8 FL (78-98); MEAN PLATELET VOLUME 10.7 FL (7.4-10.4); MONOCYTES % (AUTO) 10.5 % (2-12); NEUTROPHILS % (AUTO) 87.3 % (42-75); PLATELET COUNT 124 X10'3 (140-440); RED BLOOD COUNT 5.63 X10'6 (4.70-6.10); RED CELL DISTRIBUTION WIDTH 15.3 % (11.5-14.5)
[2021-02-08] MEDS ORDERED: dextrose 50%-water 50ml dispensing syringe IV ONE (03:40)
[2021-02-08] MEDS ORDERED: albuterol 2.5 MG/3 ML nebule CONTNEB ONE (03:40)
[2021-02-08] MEDS ORDERED: calcium chloride 100 MG/1 ML inj IV ONE ×3 (03:40→11:15)
[2021-02-08] MEDS ORDERED: sodium bicarbonate (8.4%) 1 mEq/ml syringe IV ONE (03:40)
[2021-02-08] MEDS ORDERED: furosemide 40mg/4ml inj IV ONE (03:40)
[2021-02-08 03:48] LABS: HEMOGLOBIN 19.4 g/dl (14.0-17.9)
[2021-02-08] MEDS ORDERED: insulin regular, human U-100 3ml vial - multi-dose IV ONE (03:55)
[2021-02-08] MEDS: midazolam 100mg in NS 100ml 100 ML IV PRN ×4 (04:26→20:07)
[2021-02-08] MEDS: normal saline 1000ml 1,000 ML IV SCH (05:53)
--- NOTE | 2021-02-08 06:30 | NUR ---
Patient in room CICU 2013. I have received report from Roxana DIEGO and had the opportunity to ask questions and assume patient care.
--- NOTE | 2021-02-08 06:38 | NUR ---
Problems reprioritized. Patient report given, questions answered & plan of care reviewed with JOHNATHON Leo.
[2021-02-08 06:51] LABS: LARGE PLATELETS FEW; PLATELET ESTIMATE DECREASED
[2021-02-08 06:54] LABS: ANISOCYTOSIS 1+
[2021-02-08] MEDS: enoxaparin 40mg/0.4ml syringe SQ SCH (07:23)
[2021-02-08] MEDS: lactobacillus rhamnosus 10,000 MMU CELLS/CAPSULE PO SCH ×2 (07:24→20:08)
[2021-02-08] MEDS: dexamethasone 4mg/ml inj IV SCH ×2 (07:24→20:06)
[2021-02-08] MEDS: docusate sodium 100mg/10ml UD cup PO SCH ×2 (07:24→20:08)
[2021-02-08] MEDS: famotidine/PF 10 mg/ml inj IV SCH (07:24)
[2021-02-08] MEDS ORDERED: bisacodyl 10mg suppository rectal RC SCH ×2 (08:00→12:30)
[2021-02-08 08:10] LABS: POTASSIUM 6.4 MMOL/L (3.5-5.1)
[2021-02-08] MEDS: K, MAG and/or Phos replacement - Verify level? MC SCH (08:19)
[2021-02-08 09:46] LABS: ABG BASE EXCESS -12.2 mmol/L (-2.0-2.0); ABG HCO3 18.2 mmol/L (22.0-26.0); ABG OXYGEN SATURATION 83.5 % (94-97); ABG PCO2 (T) 57.5 mmHg (35.0-48.0); ABG PO2 (T) 52.1 mmHg (75.0-100.0); FCOHb 0.3 % (0.0-3.9); FMetHb 0.4 % (0.0-1.5); FO2Hb 82.9 % (94-97); PATIENT TEMPERATURE 36.8; PEEP 15 cm H2O; RESPIRATORY RATE 30 b/min; TIDAL VOLUME 500 mL; TOTAL HEMOGLOBIN 19.9 G/dl (14.0-18.0)
[2021-02-08 10:04] LABS: BASOPHILS % (AUTO) 0.1 % (0-1); EOSINOPHILS % (AUTO) 0 % (0-6); HEMATOCRIT 56.3 % (42.0-52.0); LYMPHOCYTES # (AUTO) 0.1 X10'3 (1.1-4.8); LYMPHOCYTES % (AUTO) 1.4 % (21-51); MEAN CORPUSCULAR HEMOGLOBIN 34.4 PG (27.0-31.0); MEAN CORPUSCULAR HGB CONC 32.7 g/dL (33.0-36.5); MEAN CORPUSCULAR VOLUME 105.2 FL (78-98); MONOCYTES # (AUTO) 0.7 X10'3 (0-0.9); MONOCYTES % (AUTO) 8.4 % (2-12); NEUTROPHILS # (AUTO) 7.8 X10'3 (1.8-7.7); NEUTROPHILS % (AUTO) 90.1 % (42-75); PLATELET COUNT 107 X10'3 (140-440); RED BLOOD COUNT 5.35 X10'6 (4.70-6.10); RED CELL DISTRIBUTION WIDTH 15.2 % (11.5-14.5); WHITE BLOOD COUNT 8.6 X10'3 (4.5-11.0)
[2021-02-08 10:06] LABS: HEMOGLOBIN 18.4 g/dl (14.0-17.9)
[2021-02-08 10:16] LABS: ALANINE AMINOTRANSFERASE 72 U/L (12-78); ALBUMIN 1.8 G/DL (3.4-5.0); ALBUMIN/GLOBULIN RATIO 0.6 (1.1-1.5); ALKALINE PHOSPHATASE 54 IU/L (46-116); ANION GAP 12 (8-16); ASPARTATE AMINO TRANSFERASE 139 U/L (10-37); BILIRUBIN,TOTAL 0.6 MG/DL (0.1-1.0); BLOOD UREA NITROGEN 100 MG/DL (7-18); BUN/CREATININE RATIO 15.7 (5.4-32.0); CALCIUM 6.1 MG/DL (8.5-10.1); CHLORIDE 110 MMOL/L (99-107); CREATININE 6.37 MG/DL (0.60-1.10); GLUCOSE 301 MG/DL (70-104); MAGNESIUM 2.4 MG/DL (1.5-2.4); PHOSPHORUS 6.5 MG/DL (2.3-4.5); SODIUM 141 MMOL/L (135-145); TOTAL CARBON DIOXIDE 18.6 MMOL/L (24-32); TOTAL PROTEIN 4.7 G/DL (6.4-8.2); eGFR 9 ML/MIN
--- NOTE | 2021-02-08 11:43 | NUR ---
Reassessment: Pt remains intubated MAP 64-86 this AM on pressors w/ CHF, new DM DX previously unknown A1C 7.0, and renal failure per payroll technician. Rectal tube in place -50ml. K 6.0 down from 7.5 yesterday w/ Phos 6.5 this AM. OG in place w/ TF recs below given pt needs on vent. Will continue to monitor. Recommendations: 1) IF TF, continuous Vital High Protein with goal rate of 90 mL/hr. To begin at 30 mL/hr and advance by 20 mL Q8H as tolerated to goal rate. Once at goal to provide 2160 mL total volume/day, 2160 kcal, 189 g protein, and 1806 mL water 2) IF TF, monitor serum Na for water flush recommendations 3) IF TF, prealbumin q Monday/, daily scaled weights 4) Routine bowel care 5) DM education once stable following extubation, A1c 7.0%. Will need official new DM dx by physician prior to RD education Addendum: 02/08/21 at [address] Amended: Links added.
[2021-02-08] MEDS ORDERED: calcium chloride inj. 1,000 MG in NS 100ml IV soln (110ml) IV ONE (11:45)
[2021-02-08] MEDS: bisacodyl 10mg suppository rectal RC SCH (12:25)
[2021-02-08] MEDS ORDERED: sodium polystyrene sulfonate 15gm/60ml oral suspension PO ONE (12:40)
[2021-02-08] MEDS: sodium bicarbonate (8.4%) 1 mEq/ml syringe IV SCH ×2 (14:16→20:14)
[2021-02-08] MEDS: vasopressin inj. 40 UNIT in normal saline 50ml IV soln 38 ML IV SCH (15:00)
[2021-02-08] MEDS ORDERED: heparin, porcine 5000 units/ml vial SQ SCH (16:00)
[2021-02-08] MEDS ORDERED: calcium chloride inj. 1,000 MG in normal saline 100ml IV soln 100 ML IV PRN (16:45)
[2021-02-08] MEDS ORDERED: sodium phosphate inj. 30 MMOL in normal saline 250ml IV soln 250 ML IV PRN (16:45)
[2021-02-08] MEDS ORDERED: heparin 10,000 units/1 ML INJ IV PRN (16:45)
[2021-02-08] MEDS ORDERED: heparin 10,000 units/1 ML INJ IV ONE (16:45)
[2021-02-08] MEDS ORDERED: magnesium 4gm in 100ml NS 100 ML IV PRN (16:45)
[2021-02-08] MEDS ORDERED: potassium Cl 40MEQ/250ML bag 270 ML IV PRN (16:45)
[2021-02-08] MEDS ORDERED: bicarb dialysis sol 2K+/3 Ca2+ 5,000 ML HE SCH (17:45)
--- NOTE | 2021-02-08 18:28 | NUR ---
Problems reprioritized. Patient report given, questions answered & plan of care reviewed with Roxana DIEGO.
--- NOTE | 2021-02-08 18:30 | NUR ---
Patient in room CICU 2012. I have received report from Felipa Adam RN and had the opportunity to ask questions and assume patient care. hand cutter at bedside to set up CVVH.
[2021-02-08] MEDS ORDERED: amiodarone 200mg tablet PO SCH ×2 (19:00→23:00)
[2021-02-08 19:20] LABS: COLOR,URINE YELLOW (Yellow); UA COLLECTION TYPE NON-SPECIFIED
[2021-02-08 19:21] LABS: CLARITY,URINE SLIGHTLY CLOUDY (Clear); GLUCOSE, URINE NEGATIVE (Neg); KETONES,URINE NEGATIVE (Neg); NITRITES, URINE NEGATIVE (Neg); OCCULT BLOOD,URINE LARGE (Neg); PROTEIN,URINE 100 mg/dl (Neg); UROBILINOGEN,URINE 0.2 E.U/dL (0.2-1.0)
[2021-02-08 19:22] LABS: LEUKOCYTE ESTERASE ,URINE NEGATIVE (Neg)
[2021-02-08 19:23] LABS: AMORPHOUS URATES 1+; BACTERIA,URINE NONE SEEN /HPF (Neg); MUCUS STRANDS FEW /LPF (Neg); RBC,URINE 20-50 /HPF (0-2); SQUAMOUS EPITHELIAL CELL,UR FEW /LPF (FEW)
[2021-02-08] MEDS: heparin 25,000 UNIT/250ml bag 250 ML IV SCH (19:34)
[2021-02-08] MEDS: bicarb dialysis sol 2K+/3 Ca2+ 5,000 ML HE SCH ×7 (19:35→23:21)
[2021-02-08] MEDS: amiodarone 200mg tablet PO SCH ×2 (19:48→21:00)
[2021-02-08] MEDS: polyethylene glycol 3350 17gm powd pack PO SCH (20:14)
[2021-02-08] MEDS: insulin glargine (Lantus) pen - multi-dose SQ SCH (21:13)
[2021-02-08 21:15] LABS: BASOPHILS % (AUTO) 0.2 % (0-1); EOSINOPHILS % (AUTO) 0 % (0-6); HEMATOCRIT 54.6 % (42.0-52.0); LYMPHOCYTES # (AUTO) 0.1 X10'3 (1.1-4.8); LYMPHOCYTES % (AUTO) 1.3 % (21-51); MEAN CORPUSCULAR HEMOGLOBIN 34.6 PG (27.0-31.0); MEAN CORPUSCULAR HGB CONC 33.6 g/dL (33.0-36.5); MEAN CORPUSCULAR VOLUME 103.1 FL (78-98); MEAN PLATELET VOLUME 10.6 FL (7.4-10.4); MONOCYTES # (AUTO) 0.9 X10'3 (0-0.9); MONOCYTES % (AUTO) 9.2 % (2-12); NEUTROPHILS % (AUTO) 89.3 % (42-75); PLATELET COUNT 99 X10'3 (140-440); RED CELL DISTRIBUTION WIDTH 14.9 % (11.5-14.5); WHITE BLOOD COUNT 10.1 X10'3 (4.5-11.0)
[2021-02-08] MEDS ORDERED: insulin Lispro (HumaLOG) vial - multi-dose SQ SCH (21:25)
[2021-02-08 21:35] LABS: ALANINE AMINOTRANSFERASE 71 U/L (12-78); ALBUMIN/GLOBULIN RATIO 0.7 (1.1-1.5); ALKALINE PHOSPHATASE 64 IU/L (46-116); ANION GAP 11 (8-16); ASPARTATE AMINO TRANSFERASE 124 U/L (10-37); BILIRUBIN,TOTAL 0.6 MG/DL (0.1-1.0); BLOOD UREA NITROGEN 98 MG/DL (7-18); BUN/CREATININE RATIO 14.4 (5.4-32.0); CALCIUM 6.5 MG/DL (8.5-10.1); CHLORIDE 111 MMOL/L (99-107); GLUCOSE 236 MG/DL (70-104); HEMOGLOBIN 18.3 g/dl (14.0-17.9); MAGNESIUM 2.4 MG/DL (1.5-2.4); PHOSPHORUS 5.2 MG/DL (2.3-4.5); POTASSIUM 5.3 MMOL/L (3.5-5.1); SODIUM 144 MMOL/L (135-145); TOTAL CARBON DIOXIDE 21.6 MMOL/L (24-32); TOTAL PROTEIN 4.8 G/DL (6.4-8.2); eGFR 9 ML/MIN
[2021-02-08] MEDS ORDERED: amiodarone 200mg tablet PO ONE (23:00)
[2021-02-08 23:47] LABS: BASOPHILS % (AUTO) 0.3 % (0-1); EOSINOPHILS % (AUTO) 0 % (0-6); HEMATOCRIT 54.6 % (42.0-52.0); LYMPHOCYTES # (AUTO) 0.2 X10'3 (1.1-4.8); LYMPHOCYTES % (AUTO) 1.7 % (21-51); MEAN CORPUSCULAR HEMOGLOBIN 34.6 PG (27.0-31.0); MEAN CORPUSCULAR HGB CONC 33.5 g/dL (33.0-36.5); MEAN CORPUSCULAR VOLUME 103.4 FL (78-98); MEAN PLATELET VOLUME 10.5 FL (7.4-10.4); MONOCYTES # (AUTO) 0.7 X10'3 (0-0.9); MONOCYTES % (AUTO) 7.2 % (2-12); NEUTROPHILS % (AUTO) 90.8 % (42-75); PLATELET COUNT 96 X10'3 (140-440); RED BLOOD COUNT 5.28 X10'6 (4.70-6.10); RED CELL DISTRIBUTION WIDTH 14.8 % (11.5-14.5); WHITE BLOOD COUNT 9.9 X10'3 (4.5-11.0)
[2021-02-09] VITALS (25 sets, daily range): BP systolic 106–159; BP diastolic 45–71
[2021-02-09 00:01] LABS: HEMOGLOBIN 18.3 g/dl (14.0-17.9)
[2021-02-09 00:03] LABS: ANION GAP 10 (8-16); BLOOD UREA NITROGEN 90 MG/DL (7-18); BUN/CREATININE RATIO 13.9 (5.4-32.0); CALCIUM 7.7 MG/DL (8.5-10.1); CHLORIDE 110 MMOL/L (99-107); CREATININE 6.49 MG/DL (0.60-1.10); GLUCOSE 231 MG/DL (70-104); MAGNESIUM 2.3 MG/DL (1.5-2.4); PHOSPHORUS 5.2 MG/DL (2.3-4.5); POTASSIUM 5.1 MMOL/L (3.5-5.1); SODIUM 143 MMOL/L (135-145); TOTAL CARBON DIOXIDE 22.7 MMOL/L (24-32); eGFR 9 ML/MIN
[2021-02-09] MEDS: CISatracurium besylate inj. 100 MG in normal saline 100ml IV soln 90 ML IV PRN ×7 (01:09→20:28)
[2021-02-09] MEDS: midazolam 100mg in NS 100ml 100 ML IV PRN ×5 (01:10→21:40)
[2021-02-09 01:20] LABS: BASOPHILS # (AUTO) 0.1 X10'3 (0-0.2); BASOPHILS % (AUTO) 0.6 % (0-1); EOSINOPHILS % (AUTO) 0 % (0-6); HEMATOCRIT 53.6 % (42.0-52.0); LYMPHOCYTES # (AUTO) 0.1 X10'3 (1.1-4.8); LYMPHOCYTES % (AUTO) 1.3 % (21-51); MEAN CORPUSCULAR HEMOGLOBIN 34.3 PG (27.0-31.0); MEAN CORPUSCULAR HGB CONC 33.8 g/dL (33.0-36.5); MEAN CORPUSCULAR VOLUME 101.6 FL (78-98); MEAN PLATELET VOLUME 10.2 FL (7.4-10.4); MONOCYTES # (AUTO) 0.8 X10'3 (0-0.9); MONOCYTES % (AUTO) 7.7 % (2-12); NEUTROPHILS % (AUTO) 90.4 % (42-75); PLATELET COUNT 99 X10'3 (140-440); RED BLOOD COUNT 5.27 X10'6 (4.70-6.10); RED CELL DISTRIBUTION WIDTH 14.8 % (11.5-14.5); WHITE BLOOD COUNT 9.9 X10'3 (4.5-11.0)
[2021-02-09 01:24] LABS: HEMOGLOBIN 18.1 g/dl (14.0-17.9)
[2021-02-09 01:32] LABS: ANION GAP 13 (8-16); BLOOD UREA NITROGEN 89 MG/DL (7-18); BUN/CREATININE RATIO 14.2 (5.4-32.0); CALCIUM 7.3 MG/DL (8.5-10.1); CHLORIDE 108 MMOL/L (99-107); CREATININE 6.27 MG/DL (0.60-1.10); GLUCOSE 223 MG/DL (70-104); MAGNESIUM 2.2 MG/DL (1.5-2.4); PHOSPHORUS 5.3 MG/DL (2.3-4.5); SODIUM 143 MMOL/L (135-145); TOTAL CARBON DIOXIDE 22.3 MMOL/L (24-32); eGFR 9 ML/MIN
[2021-02-09] MEDS ORDERED: insulin Lispro (HumaLOG) vial - multi-dose SQ SCH (02:00)
--- NOTE | 2021-02-09 02:17 | NUR ---
Critical PTT of NO VALUE X2. Dr. Roman called. Order to hold infusion for 2 hours then restart at a rate of 1000units/hour.
[2021-02-09] MEDS: FENTANYL-0.9 % NACL/PF 100 ML IV PRN ×6 (02:28→20:11)
[2021-02-09] MEDS: mineral oil/petrolatum ophthal oint EACHEYE SCH ×4 (02:29→19:44)
[2021-02-09] MEDS: NORepinephrine 8mg/ 250ml NS 250 ML IV PRN (02:29)
[2021-02-09 02:34] LABS: UA EOSINOPHILS NO EOS /HPF
[2021-02-09 02:39] LABS: ABG BASE EXCESS -8.9 mmol/L (-2.0-2.0); ABG HCO3 19.2 mmol/L (22.0-26.0); ABG PCO2 (T) 45.8 mmHg (35.0-48.0); ABG PO2 (T) 51.8 mmHg (75.0-100.0); FCOHb 0.3 % (0.0-3.9); FMetHb 0.3 % (0.0-1.5); FO2Hb 85.5 % (94-97); PATIENT TEMPERATURE 35.7; PEEP 15 cm H2O; RESPIRATORY RATE 30 b/min; TIDAL VOLUME 500 mL; TOTAL HEMOGLOBIN 19.6 G/dl (14.0-18.0)
[2021-02-09] MEDS: VANCOMYCIN LEVEL IV SCH (02:46)
[2021-02-09] MEDS: sodium bicarbonate (8.4%) 1 mEq/ml syringe IV SCH (02:50)
[2021-02-09 03:07] LABS: EOSINOPHILS % (AUTO) 0 % (0-6); LYMPHOCYTES # (AUTO) 0.1 X10'3 (1.1-4.8)
[2021-02-09 03:08] LABS: BASOPHILS % (AUTO) 0.2 % (0-1); HEMATOCRIT 52.9 % (42.0-52.0); LYMPHOCYTES % (AUTO) 1.1 % (21-51); MEAN CORPUSCULAR HEMOGLOBIN 34.4 PG (27.0-31.0); MEAN CORPUSCULAR HGB CONC 34.1 g/dL (33.0-36.5); MEAN PLATELET VOLUME 10.6 FL (7.4-10.4); MONOCYTES # (AUTO) 0.7 X10'3 (0-0.9); MONOCYTES % (AUTO) 7.3 % (2-12); NEUTROPHILS # (AUTO) 9.1 X10'3 (1.8-7.7); NEUTROPHILS % (AUTO) 91.4 % (42-75); PLATELET COUNT 99 X10'3 (140-440); RED BLOOD COUNT 5.24 X10'6 (4.70-6.10)
[2021-02-09] MEDS: bicarb dialysis sol 2K+/3 Ca2+ 5,000 ML HE SCH ×15 (03:24→21:14)
[2021-02-09 03:25] LABS: ALANINE AMINOTRANSFERASE 70 U/L (12-78); ALBUMIN 1.9 G/DL (3.4-5.0); ALBUMIN/GLOBULIN RATIO 0.6 (1.1-1.5); ALKALINE PHOSPHATASE 63 IU/L (46-116); ANION GAP 12 (8-16); ASPARTATE AMINO TRANSFERASE 114 U/L (10-37); BILIRUBIN,TOTAL 0.7 MG/DL (0.1-1.0); BLOOD UREA NITROGEN 82 MG/DL (7-18); BUN/CREATININE RATIO 13.6 (5.4-32.0); CALCIUM 7.1 MG/DL (8.5-10.1); CHLORIDE 109 MMOL/L (99-107); CREATININE 6.02 MG/DL (0.60-1.10); GLUCOSE 213 MG/DL (70-104); MAGNESIUM 2.2 MG/DL (1.5-2.4); PHOSPHORUS 5.2 MG/DL (2.3-4.5); POTASSIUM 4.9 MMOL/L (3.5-5.1); SODIUM 142 MMOL/L (135-145); TOTAL CARBON DIOXIDE 21.2 MMOL/L (24-32); TOTAL PROTEIN 4.9 G/DL (6.4-8.2); VANCOMYCIN,TROUGH 8.6 UG/ML (6.0-14.0); eGFR 10 ML/MIN
[2021-02-09] MEDS: amiodarone/D5 360MG/200ML BAG 200 ML IV SCH (03:30)
--- NOTE | 2021-02-09 05:00 | NUR ---
Patient remained too unstable to turn throughout shift. Shifted hips to the left and right every 2 hours. Fawn Hugger warming blanket placed on patient.
[2021-02-09] MEDS: heparin 25,000 UNIT/250ml bag 250 ML IV SCH ×2 (05:15→15:09)
[2021-02-09] MEDS: DOBUTamine-DoBUTrex 500mg/D5W 250 ML IV SCH ×2 (06:09→19:45)
--- NOTE | 2021-02-09 06:30 | NUR ---
Problems reprioritized. Patient report given, questions answered & plan of care reviewed with Felipa Adam RN.
--- NOTE | 2021-02-09 06:39 | NUR ---
Patient in room CICU 2013. I have received report from Roxana DIEGO and had the opportunity to ask questions and assume patient care.
[2021-02-09] MEDS: famotidine/PF 10 mg/ml inj IV SCH (07:26)
[2021-02-09] MEDS: dexamethasone 4mg/ml inj IV SCH ×2 (07:26→19:45)
[2021-02-09] MEDS: docusate sodium 100mg/10ml UD cup PO SCH ×2 (07:26→19:45)
[2021-02-09] MEDS: amiodarone 200mg tablet PO SCH ×3 (07:27→20:12)
[2021-02-09] MEDS: lactobacillus rhamnosus 10,000 MMU CELLS/CAPSULE PO SCH ×2 (07:27→19:45)
[2021-02-09] MEDS ORDERED: vancomycin/NS 1 GM ADD-VANTAGE 250 ML X 1 DOSE IV ONE (07:40)
[2021-02-09 07:52] LABS: ABG BASE EXCESS -9.4 mmol/L (-2.0-2.0); ABG OXYGEN SATURATION 86.2 % (94-97); ABG PCO2 (T) 36.9 mmHg (35.0-48.0); ABG PO2 (T) 53.5 mmHg (75.0-100.0); FCOHb 0.1 % (0.0-3.9); FMetHb 0.5 % (0.0-1.5); FO2Hb 85.7 % (94-97); RESPIRATORY RATE 30 b/min; TIDAL VOLUME 500 mL; TOTAL HEMOGLOBIN 15.7 G/dl (14.0-18.0)
[2021-02-09] MEDS: insulin glargine (Lantus) pen - multi-dose SQ SCH ×2 (08:44→20:03)
[2021-02-09] MEDS: insulin regular, human U-100 3ml vial - multi-dose SQ SCH ×3 (08:46→20:04)
[2021-02-09] MEDS: K, MAG and/or Phos replacement - Verify level? MC SCH (08:47)
[2021-02-09 08:58] LABS: BASOPHILS % (AUTO) 0.3 % (0-1); EOSINOPHILS % (AUTO) 0 % (0-6); HEMOGLOBIN 17.5 g/dl (14.0-17.9); LYMPHOCYTES # (AUTO) 0.1 X10'3 (1.1-4.8); MEAN CORPUSCULAR HGB CONC 33.9 g/dL (33.0-36.5); MEAN PLATELET VOLUME 10.1 FL (7.4-10.4); MONOCYTES # (AUTO) 0.6 X10'3 (0-0.9)
[2021-02-09 08:59] LABS: HEMATOCRIT 51.8 % (42.0-52.0); LYMPHOCYTES % (AUTO) 1.1 % (21-51); MEAN CORPUSCULAR HEMOGLOBIN 34.1 PG (27.0-31.0); MEAN CORPUSCULAR VOLUME 100.7 FL (78-98); MONOCYTES % (AUTO) 6.4 % (2-12); NEUTROPHILS # (AUTO) 8.4 X10'3 (1.8-7.7); NEUTROPHILS % (AUTO) 92.2 % (42-75); PLATELET COUNT 94 X10'3 (140-440); RED BLOOD COUNT 5.14 X10'6 (4.70-6.10); RED CELL DISTRIBUTION WIDTH 14.9 % (11.5-14.5); WHITE BLOOD COUNT 9.1 X10'3 (4.5-11.0)
[2021-02-09 09:31] LABS: ALANINE AMINOTRANSFERASE 69 U/L (12-78); ALBUMIN 1.8 G/DL (3.4-5.0); ALBUMIN/GLOBULIN RATIO 0.6 (1.1-1.5); ALKALINE PHOSPHATASE 64 IU/L (46-116); ANION GAP 11 (8-16); ASPARTATE AMINO TRANSFERASE 106 U/L (10-37); BILIRUBIN,TOTAL 0.6 MG/DL (0.1-1.0); BLOOD UREA NITROGEN 73 MG/DL (7-18); BUN/CREATININE RATIO 13.7 (5.4-32.0); CALCIUM 7.3 MG/DL (8.5-10.1); CHLORIDE 109 MMOL/L (99-107); CREATININE 5.32 MG/DL (0.60-1.10); GLUCOSE 199 MG/DL (70-104); MAGNESIUM 2.2 MG/DL (1.5-2.4); PHOSPHORUS 4.6 MG/DL (2.3-4.5); POTASSIUM 4.9 MMOL/L (3.5-5.1); SODIUM 144 MMOL/L (135-145); TOTAL CARBON DIOXIDE 23.9 MMOL/L (24-32); TOTAL PROTEIN 4.8 G/DL (6.4-8.2); eGFR 11 ML/MIN
[2021-02-09] MEDS: sodium bicarbonate (8.4%) inj. 150 MEQ in dextrose 5%-water 1,000 ML IV SCH ×2 (11:11→22:53)
[2021-02-09] MEDS ORDERED: bisacodyl 10mg suppository rectal RC ONE (11:40)
[2021-02-09] MEDS: polyethylene glycol 3350 17gm powd pack PO SCH ×5 (12:32→20:11)
[2021-02-09] MEDS: normal saline 1000ml 1,000 ML IV SCH (12:55)
--- NOTE | 2021-02-09 13:36 | NUR ---
TF Consult: Pt remains intubated MAP 66-75 this AM now started on CVVH for TI per EMR. TF to start today per cemetery vault installer; recs below given pt needs on vent w/ CVVH. Rectal tube -60ml past 24 hours w/ 50-170ml output this admit 4 days though no significant BM per RN. Receiving routine colace and miralax HS w/ miralax Q2H four times to start today per cemetery vault installer. Will monitor for EN tolerance and adjustment needs. Recommendations: 1) Continuous TF using Vital High Protein at 95mL/hr goal; to provide 2280mL volume/day, 2280 kcal, 200g protein, and 1915mL water 2) additional water flush per MD on CVVH 3) monitor for TF tolerance 4) Prealbumin q Monday/, daily scaled weights 5) Routine bowel care 6) DM education once stable following extubation, A1c 7.0%. Will need official new DM dx by physician prior to RD education Addendum: 02/09/21 at [address] Amended: Links added.
[2021-02-09 14:55] LABS: BASOPHILS % (AUTO) 0.3 % (0-1); EOSINOPHILS % (AUTO) 0 % (0-6); HEMATOCRIT 51.6 % (42.0-52.0); HEMOGLOBIN 17.5 g/dl (14.0-17.9); LYMPHOCYTES # (AUTO) 0.1 X10'3 (1.1-4.8); LYMPHOCYTES % (AUTO) 0.9 % (21-51); MEAN CORPUSCULAR HEMOGLOBIN 34.4 PG (27.0-31.0); MEAN CORPUSCULAR HGB CONC 33.9 g/dL (33.0-36.5); MEAN CORPUSCULAR VOLUME 101.7 FL (78-98); MEAN PLATELET VOLUME 11.2 FL (7.4-10.4); MONOCYTES # (AUTO) 0.6 X10'3 (0-0.9); MONOCYTES % (AUTO) 6.8 % (2-12); NEUTROPHILS # (AUTO) 8.5 X10'3 (1.8-7.7); PLATELET COUNT 99 X10'3 (140-440); RED BLOOD COUNT 5.07 X10'6 (4.70-6.10); RED CELL DISTRIBUTION WIDTH 14.8 % (11.5-14.5); WHITE BLOOD COUNT 9.2 X10'3 (4.5-11.0)
[2021-02-09 15:02] LABS: ALANINE AMINOTRANSFERASE 67 U/L (12-78); ALBUMIN 1.8 G/DL (3.4-5.0); ALBUMIN/GLOBULIN RATIO 0.6 (1.1-1.5); ALKALINE PHOSPHATASE 67 IU/L (46-116); ANION GAP 7 (8-16); ASPARTATE AMINO TRANSFERASE 95 U/L (10-37); BILIRUBIN,TOTAL 0.7 MG/DL (0.1-1.0); BLOOD UREA NITROGEN 66 MG/DL (7-18); BUN/CREATININE RATIO 13.4 (5.4-32.0); CALCIUM 7.1 MG/DL (8.5-10.1); CHLORIDE 108 MMOL/L (99-107); CREATININE 4.93 MG/DL (0.60-1.10); GLUCOSE 185 MG/DL (70-104); PHOSPHORUS 4.3 MG/DL (2.3-4.5); POTASSIUM 4.7 MMOL/L (3.5-5.1); SODIUM 142 MMOL/L (135-145); TOTAL CARBON DIOXIDE 27.1 MMOL/L (24-32); TOTAL PROTEIN 4.7 G/DL (6.4-8.2); eGFR 12 ML/MIN
[2021-02-09 15:49] LABS: LARGE PLATELETS FEW; PLATELET ESTIMATE DECREASED
[2021-02-09] MEDS ORDERED: insulin regular, human U-100 3ml vial - multi-dose SQ SCH (15:50)
--- NOTE | 2021-02-09 17:35 | NUR ---
Tube feed started at 30mls/hr
--- NOTE | 2021-02-09 18:28 | NUR ---
Problems reprioritized. Patient report given, questions answered & plan of care reviewed with Dawn DIEGO.
--- NOTE | 2021-02-09 18:30 | NUR ---
Patient in room CICU 2013. I have received report from Felipa DIEGO and had the opportunity to ask questions and assume patient care.
[2021-02-09] MEDS ORDERED: BICARB DIALYSIS 4K/2.5 Ca2+sol 5,000 ML HE SCH (20:00)
[2021-02-09] MEDS: Duosol 4K/3 Ca (w/calcium) 5,000 ML HE SCH ×2 (21:13→21:49)
[2021-02-09 21:32] LABS: EOSINOPHILS % (AUTO) 0 % (0-6); LYMPHOCYTES # (AUTO) 0.1 X10'3 (1.1-4.8); MONOCYTES # (AUTO) 0.6 X10'3 (0-0.9); NEUTROPHILS # (AUTO) 8.9 X10'3 (1.8-7.7); WHITE BLOOD COUNT 9.6 X10'3 (4.5-11.0)
[2021-02-09 21:33] LABS: BASOPHILS % (AUTO) 0.4 % (0-1); HEMOGLOBIN 17.2 g/dl (14.0-17.9); MEAN CORPUSCULAR HEMOGLOBIN 34.1 PG (27.0-31.0); MEAN CORPUSCULAR HGB CONC 34.3 g/dL (33.0-36.5); MEAN CORPUSCULAR VOLUME 99.5 FL (78-98); MEAN PLATELET VOLUME 10.2 FL (7.4-10.4); MONOCYTES % (AUTO) 5.8 % (2-12); NEUTROPHILS % (AUTO) 92.8 % (42-75); PLATELET COUNT 92 X10'3 (140-440); RED BLOOD COUNT 5.03 X10'6 (4.70-6.10); RED CELL DISTRIBUTION WIDTH 14.5 % (11.5-14.5)
[2021-02-09 21:52] LABS: ALANINE AMINOTRANSFERASE 63 U/L (12-78); ALBUMIN 1.8 G/DL (3.4-5.0); ALBUMIN/GLOBULIN RATIO 0.6 (1.1-1.5); ALKALINE PHOSPHATASE 69 IU/L (46-116); ANION GAP 7 (8-16); ASPARTATE AMINO TRANSFERASE 81 U/L (10-37); BILIRUBIN,TOTAL 0.8 MG/DL (0.1-1.0); BLOOD UREA NITROGEN 56 MG/DL (7-18); BUN/CREATININE RATIO 11.9 (5.4-32.0); CALCIUM 7.3 MG/DL (8.5-10.1); CHLORIDE 108 MMOL/L (99-107); CREATININE 4.72 MG/DL (0.60-1.10); GLUCOSE 172 MG/DL (70-104); MAGNESIUM 2.1 MG/DL (1.5-2.4); PHOSPHORUS 3.9 MG/DL (2.3-4.5); POTASSIUM 4.6 MMOL/L (3.5-5.1); SODIUM 142 MMOL/L (135-145); TOTAL CARBON DIOXIDE 26.8 MMOL/L (24-32); TOTAL PROTEIN 4.7 G/DL (6.4-8.2); eGFR 13 ML/MIN
[2021-02-10] VITALS (24 sets, daily range): BP systolic 96–156; BP diastolic 45–66
--- NOTE | 2021-02-10 00:15 | NUR ---
0000 residual check yielded 525ml. TF was previously running @ starting rate of 30ml/hr. It is now turned off. Will recheck and turn back on and titrate as PT tolerated. Will continue to monitor.
[2021-02-10] MEDS: CISatracurium besylate inj. 100 MG in normal saline 100ml IV soln 90 ML IV PRN ×6 (00:39→21:28)
[2021-02-10] MEDS: FENTANYL-0.9 % NACL/PF 100 ML IV PRN ×6 (00:40→21:27)
[2021-02-10] MEDS: mineral oil/petrolatum ophthal oint EACHEYE SCH ×4 (01:50→20:23)
[2021-02-10] MEDS: Duosol 4K/3 Ca (w/calcium) 5,000 ML HE SCH ×14 (02:11→15:05)
[2021-02-10] MEDS: VANCOMYCIN LEVEL IV SCH (02:13)
--- NOTE | 2021-02-10 02:26 | NUR ---
Dobutamine titrated down to 2.5mcg. PT's BP has been trending up and PT has bounding pulses. Can see Carotid pulsate from window. Will increase rate if needed and will continue to monitor.
[2021-02-10] MEDS: insulin regular, human U-100 3ml vial - multi-dose SQ SCH ×4 (02:31→20:54)
[2021-02-10] MEDS: midazolam 100mg in NS 100ml 100 ML IV PRN ×5 (03:23→23:57)
[2021-02-10] MEDS ORDERED: albuterol 2.5 MG/3 ML nebule NEB PRN (03:25)
[2021-02-10 03:34] LABS: BASOPHILS % (AUTO) 0.3 % (0-1); EOSINOPHILS % (AUTO) 0 % (0-6); HEMATOCRIT 49.4 % (42.0-52.0); HEMOGLOBIN 17.1 g/dl (14.0-17.9); LYMPHOCYTES # (AUTO) 0.1 X10'3 (1.1-4.8); MEAN CORPUSCULAR HEMOGLOBIN 34.5 PG (27.0-31.0); MEAN CORPUSCULAR HGB CONC 34.7 g/dL (33.0-36.5); MEAN CORPUSCULAR VOLUME 99.3 FL (78-98); MEAN PLATELET VOLUME 10.3 FL (7.4-10.4); MONOCYTES # (AUTO) 0.6 X10'3 (0-0.9); MONOCYTES % (AUTO) 6.1 % (2-12); NEUTROPHILS # (AUTO) 9.2 X10'3 (1.8-7.7); NEUTROPHILS % (AUTO) 92.6 % (42-75); PLATELET COUNT 87 X10'3 (140-440); RED BLOOD COUNT 4.97 X10'6 (4.70-6.10); RED CELL DISTRIBUTION WIDTH 14.3 % (11.5-14.5)
[2021-02-10 03:48] LABS: D-DIMER 2.55 MG/L FEU (0-0.50); PARTIAL THROMBOPLASTIN TIME 45 SECONDS (22-32)
[2021-02-10 03:52] LABS: ALANINE AMINOTRANSFERASE 64 U/L (12-78); ALBUMIN 1.9 G/DL (3.4-5.0); ALBUMIN/GLOBULIN RATIO 0.7 (1.1-1.5); ALKALINE PHOSPHATASE 67 IU/L (46-116); ANION GAP 3 (8-16); ASPARTATE AMINO TRANSFERASE 78 U/L (10-37); BILIRUBIN,TOTAL 0.8 MG/DL (0.1-1.0); BLOOD UREA NITROGEN 53 MG/DL (7-18); BUN/CREATININE RATIO 11.9 (5.4-32.0); C-REACTIVE PROTEIN 1.73 MG/DL (0.0-0.5); CALCIUM 7.1 MG/DL (8.5-10.1); CHLORIDE 107 MMOL/L (99-107); CREATININE 4.45 MG/DL (0.60-1.10); GLUCOSE 155 MG/DL (70-104); MAGNESIUM 2.1 MG/DL (1.5-2.4); PHOSPHORUS 3.6 MG/DL (2.3-4.5); POTASSIUM 4.6 MMOL/L (3.5-5.1); SODIUM 139 MMOL/L (135-145); TOTAL CARBON DIOXIDE 28.8 MMOL/L (24-32); TOTAL PROTEIN 4.8 G/DL (6.4-8.2); VANCOMYCIN,TROUGH 9.6 UG/ML (6.0-14.0); eGFR 14 ML/MIN
[2021-02-10 03:54] LABS: ABG BASE EXCESS -0.5 mmol/L (-2.0-2.0); ABG HCO3 26.5 mmol/L (22.0-26.0); ABG OXYGEN SATURATION 87.3 % (94-97); ABG PCO2 (T) 51.4 mmHg (35.0-48.0); ABG PO2 (T) 57.2 mmHg (75.0-100.0); FCOHb 0.3 % (0.0-3.9); FMetHb 0.4 % (0.0-1.5); FO2Hb 86.7 % (94-97); PATIENT TEMPERATURE 36.9; PEEP 15 cm H2O; RESPIRATORY RATE 30 b/min; TIDAL VOLUME 500 mL; TOTAL HEMOGLOBIN 18.4 G/dl (14.0-18.0)
--- NOTE | 2021-02-10 06:30 | NUR ---
Received report from JOHNATHON Naik
--- NOTE | 2021-02-10 06:40 | NUR ---
Problems reprioritized. Patient report given, questions answered & plan of care reviewed with Brigette DIEGO.
[2021-02-10] MEDS ORDERED: VANCOmycin 1250MG/NS 250ml Bag 250 ML IV SCH (07:00)
[2021-02-10] MEDS: sodium bicarbonate (8.4%) inj. 150 MEQ in dextrose 5%-water 1,000 ML IV SCH (08:00)
[2021-02-10] MEDS: docusate sodium 100mg/10ml UD cup PO SCH (08:00)
[2021-02-10] MEDS: insulin glargine (Lantus) pen - multi-dose SQ SCH ×2 (08:00→20:55)
[2021-02-10] MEDS: K, MAG and/or Phos replacement - Verify level? MC SCH (08:00)
[2021-02-10] MEDS: amiodarone 200mg tablet PO SCH (09:14)
[2021-02-10] MEDS: famotidine/PF 10 mg/ml inj IV SCH (09:14)
[2021-02-10] MEDS: lactobacillus rhamnosus 10,000 MMU CELLS/CAPSULE PO SCH (09:15)
[2021-02-10] MEDS: dexamethasone 4mg/ml inj IV SCH ×2 (09:15→20:23)
[2021-02-10 09:22] LABS: EOSINOPHILS % (AUTO) 0 % (0-6); HEMOGLOBIN 17.4 g/dl (14.0-17.9); LYMPHOCYTES # (AUTO) 0.1 X10'3 (1.1-4.8); MONOCYTES # (AUTO) 0.7 X10'3 (0-0.9); WHITE BLOOD COUNT 10.3 X10'3 (4.5-11.0)
[2021-02-10 09:23] LABS: BASOPHILS % (AUTO) 0.2 % (0-1); HEMATOCRIT 50.2 % (42.0-52.0); LYMPHOCYTES % (AUTO) 0.7 % (21-51); MEAN CORPUSCULAR HEMOGLOBIN 34.6 PG (27.0-31.0); MEAN CORPUSCULAR HGB CONC 34.7 g/dL (33.0-36.5); MEAN CORPUSCULAR VOLUME 99.7 FL (78-98); MEAN PLATELET VOLUME 10.4 FL (7.4-10.4); MONOCYTES % (AUTO) 6.4 % (2-12); NEUTROPHILS # (AUTO) 9.6 X10'3 (1.8-7.7); NEUTROPHILS % (AUTO) 92.7 % (42-75); PLATELET COUNT 83 X10'3 (140-440); RED BLOOD COUNT 5.04 X10'6 (4.70-6.10); RED CELL DISTRIBUTION WIDTH 14.3 % (11.5-14.5)
[2021-02-10 09:31] LABS: ALANINE AMINOTRANSFERASE 60 U/L (12-78); ALBUMIN 1.9 G/DL (3.4-5.0); ALBUMIN/GLOBULIN RATIO 0.7 (1.1-1.5); ALKALINE PHOSPHATASE 71 IU/L (46-116); ANION GAP 6 (8-16); ASPARTATE AMINO TRANSFERASE 75 U/L (10-37); BILIRUBIN,TOTAL 0.8 MG/DL (0.1-1.0); BLOOD UREA NITROGEN 52 MG/DL (7-18); CALCIUM 7.4 MG/DL (8.5-10.1); CHLORIDE 106 MMOL/L (99-107); CREATININE 4.33 MG/DL (0.60-1.10); GLUCOSE 163 MG/DL (70-104); MAGNESIUM 2.2 MG/DL (1.5-2.4); PHOSPHORUS 3.8 MG/DL (2.3-4.5); POTASSIUM 4.8 MMOL/L (3.5-5.1); SODIUM 141 MMOL/L (135-145); TOTAL CARBON DIOXIDE 29.1 MMOL/L (24-32); TOTAL PROTEIN 4.8 G/DL (6.4-8.2); eGFR 14 ML/MIN
[2021-02-10 09:50] LABS: PARTIAL THROMBOPLASTIN TIME 47 SECONDS (22-32)
[2021-02-10] MEDS ORDERED: heparin 1,000 units/ml 10ml inj HE ONE ×2 (12:15)
[2021-02-10] MEDS ORDERED: acetaminophen 325mg tablet OGT PRN (12:31)
[2021-02-10] MEDS ORDERED: dextrose ORAL solution 15 GM/59 ML bottle OGT PRN ×2 (12:32)
[2021-02-10] MEDS: amiodarone 200mg tablet OGT SCH ×2 (13:25→20:25)
[2021-02-10] MEDS: NORepinephrine 8mg/ 250ml NS 250 ML IV SCH ×2 (13:28→22:16)
--- NOTE | 2021-02-10 17:24 | NUR ---
LATE ENTRY: 1215 CVVH filter clotted. Discontinued CVVH. Flushed Dialysis catheter. Heparin locked dialysis catheter. HD 02/[address] Roman.
--- NOTE | 2021-02-10 18:28 | NUR ---
Report given to JOHNATHON Vasquez
--- NOTE | 2021-02-10 18:30 | NUR ---
Patient in room CICU 2013. I have received report from Brigette DIEGO and had the opportunity to ask questions and assume patient care.
[2021-02-10] MEDS: DOBUTamine-DoBUTrex 500mg/D5W 250 ML IV SCH (20:21)
[2021-02-10] MEDS: lactobacillus rhamnosus 10,000 MMU CELLS/CAPSULE OGT SCH (20:23)
[2021-02-10] MEDS: docusate sodium 100mg/10ml UD cup OGT SCH (20:23)
[2021-02-10] MEDS: heparin, porcine 5000 units/ml vial SQ SCH (20:25)
[2021-02-10] MEDS: polyethylene glycol 3350 17gm powd pack OGT SCH (20:25)
[2021-02-11] VITALS (24 sets, daily range): BP systolic 91–159; BP diastolic 49–75
--- NOTE | 2021-02-11 00:34 | NUR ---
Pt has not been tolerating turning. No reserve. Not recovering to baseline SpO2 after turns. Pt turns a dark purple shade when laying flat and BP drops. BP recovers after a few minutes. HR has not changed. Well sedated and paralysed. Pt not tolerating TF. Rate was at 50ml/hr first residual check was 925ml. 300ml returned to pt. Rechecked and pt had 500ml. 300ml returned to pt and TF remains on hold. Midnight check pt had 400ml, 300ml returned.
[2021-02-11] MEDS: FENTANYL-0.9 % NACL/PF 100 ML IV PRN ×7 (00:37→21:04)
[2021-02-11] MEDS: CISatracurium besylate inj. 100 MG in normal saline 100ml IV soln 90 ML IV PRN ×6 (01:17→17:38)
[2021-02-11 01:55] LABS: ABG BASE EXCESS -3.2 mmol/L (-2.0-2.0); ABG OXYGEN SATURATION 83.3 % (94-97); ABG PCO2 (T) 55.4 mmHg (35.0-48.0); ABG PO2 (T) 53.9 mmHg (75.0-100.0); FCOHb 0.3 % (0.0-3.9); FMetHb 0.4 % (0.0-1.5); FO2Hb 82.7 % (94-97); PATIENT TEMPERATURE 36.7; PEEP 15 cm H2O; RESPIRATORY RATE 30 b/min; TIDAL VOLUME 500 mL; TOTAL HEMOGLOBIN 18.4 G/dl (14.0-18.0)
[2021-02-11] MEDS: mineral oil/petrolatum ophthal oint EACHEYE SCH ×4 (02:22→20:00)
[2021-02-11] MEDS: insulin regular, human U-100 3ml vial - multi-dose SQ SCH ×3 (02:32→14:00)
[2021-02-11 03:20] LABS: BASOPHILS % (AUTO) 0.1 % (0-1); EOSINOPHILS % (AUTO) 0 % (0-6); LYMPHOCYTES # (AUTO) 0.1 X10'3 (1.1-4.8); MEAN CORPUSCULAR HGB CONC 33.6 g/dL (33.0-36.5); MONOCYTES % (AUTO) 6.2 % (2-12)
[2021-02-11 03:23] LABS: HEMOGLOBIN 17.1 g/dl (14.0-17.9); LYMPHOCYTES % (AUTO) 0.9 % (21-51); MEAN CORPUSCULAR HEMOGLOBIN 34.2 PG (27.0-31.0); MEAN CORPUSCULAR VOLUME 101.6 FL (78-98); MEAN PLATELET VOLUME 10.8 FL (7.4-10.4); MONOCYTES # (AUTO) 0.7 X10'3 (0-0.9); NEUTROPHILS # (AUTO) 11.1 X10'3 (1.8-7.7); NEUTROPHILS % (AUTO) 92.8 % (42-75); PLATELET COUNT 75 X10'3 (140-440); RED BLOOD COUNT 5.02 X10'6 (4.70-6.10); RED CELL DISTRIBUTION WIDTH 14.3 % (11.5-14.5); WHITE BLOOD COUNT 11.9 X10'3 (4.5-11.0)
[2021-02-11] MEDS: VANCOMYCIN LEVEL IV SCH (03:30)
[2021-02-11 03:34] LABS: PARTIAL THROMBOPLASTIN TIME 37 SECONDS (22-32)
[2021-02-11 03:37] LABS: D-DIMER 11.81 MG/L FEU (0-0.50)
[2021-02-11 03:44] LABS: ALANINE AMINOTRANSFERASE 53 U/L (12-78); ALBUMIN 1.8 G/DL (3.4-5.0); ALBUMIN/GLOBULIN RATIO 0.6 (1.1-1.5); ALKALINE PHOSPHATASE 76 IU/L (46-116); ANION GAP 3 (8-16); ASPARTATE AMINO TRANSFERASE 58 U/L (10-37); BILIRUBIN,TOTAL 0.8 MG/DL (0.1-1.0); BLOOD UREA NITROGEN 77 MG/DL (7-18); BUN/CREATININE RATIO 13.5 (5.4-32.0); C-REACTIVE PROTEIN 1.19 MG/DL (0.0-0.5); CHLORIDE 102 MMOL/L (99-107); CREATININE 5.72 MG/DL (0.60-1.10); GLUCOSE 160 MG/DL (70-104); MAGNESIUM 2.6 MG/DL (1.5-2.4); PHOSPHORUS 5.7 MG/DL (2.3-4.5); POTASSIUM 5.4 MMOL/L (3.5-5.1); PREALBUMIN 18.9 MG/DL (19-36); SODIUM 132 MMOL/L (135-145); TOTAL CARBON DIOXIDE 27.4 MMOL/L (24-32); TOTAL PROTEIN 4.8 G/DL (6.4-8.2); TRIGLYCERIDES 146 MG/DL (20-135); VANCOMYCIN,TROUGH 19.5 UG/ML (6.0-14.0); eGFR 10 ML/MIN
[2021-02-11] MEDS: midazolam 100mg in NS 100ml 100 ML IV PRN ×4 (04:38→17:38)
[2021-02-11] MEDS ORDERED: normal saline 1000ml 250 ML IV PRN (04:40)
[2021-02-11] MEDS ORDERED: heparin 1,000unit/ml 10ml vial 10 ML IV ONE (04:40)
[2021-02-11] MEDS ORDERED: heparin 1,000 units/ml 10ml inj HE ONE ×2 (04:45)
--- NOTE | 2021-02-11 06:30 | NUR ---
Patient in room CICU 2013. I have received report from ariana and had the opportunity to ask questions and assume patient care.
--- NOTE | 2021-02-11 06:32 | NUR ---
Problems reprioritized. Patient report given, questions answered & plan of care reviewed with Micaela DIEGO.
[2021-02-11] MEDS ORDERED: vancomycin/NS 1 GM ADD-VANTAGE 250 ML X 1 DOSE IV PRN (06:55)
[2021-02-11] MEDS: docusate sodium 100mg/10ml UD cup OGT SCH ×2 (07:27→21:05)
[2021-02-11] MEDS: amiodarone 200mg tablet OGT SCH ×3 (07:27→21:06)
[2021-02-11] MEDS: famotidine/PF 10 mg/ml inj IV SCH (07:28)
[2021-02-11] MEDS: heparin, porcine 5000 units/ml vial SQ SCH ×2 (07:28→22:24)
[2021-02-11] MEDS: lactobacillus rhamnosus 10,000 MMU CELLS/CAPSULE OGT SCH ×2 (07:28→21:06)
[2021-02-11] MEDS: dexamethasone 4mg/ml inj IV SCH ×2 (07:29→21:11)
[2021-02-11] MEDS: insulin glargine (Lantus) pen - multi-dose SQ SCH ×2 (07:57→21:44)
[2021-02-11] MEDS: K, MAG and/or Phos replacement - Verify level? MC SCH (08:00)
[2021-02-11] MEDS: NORepinephrine 8mg/ 250ml NS 250 ML IV SCH ×2 (08:17→17:39)
[2021-02-11] MEDS ORDERED: amiodarone 150mg/dext, iso-os 100 ML IV ONE (09:00)
--- NOTE | 2021-02-11 10:00 | NUR ---
pt sedated and paralyzed. remains in afib at 120- dr polanco here and aware. amiodarone 150mg iv bolus given. sbp stable. uo 0 to 30cc/hr. hd starting- tolerating well. sats 85%- briefly 84% on 100% and peep of 15. after hd will place on rotoprone bed as per orders.
--- NOTE | 2021-02-11 11:00 | NUR ---
pt to sr at 83 post amiodarone bolus
--- NOTE | 2021-02-11 11:57 | NUR ---
F/u 02/11: Pt remains intubated w/ TF not tolerated GRV 925ml last night up from 160ml prior GRV check per EMR. TF held now restarted at 30m/hr w/ 300ml GRV most recent this AM per EMR. Noted only 50-60ml rectal tube output w/ likely 6 days constipation impacting EN tolerance. Receiving routine colace and miralax HS per EMR. Noted current wt +21kg in 3 days w/ overall +13L fluid balance this admit; unsure of accuracy previously on CVVH. Pt now off CVVH on scheduled HD per MD; updated EN recs below given pt needs on HD. RD notified RN of updated TF recs. Will continue to monitor for TF tolerance and adjustment needs. Recommendations: 1) Since pt off CVVH; Continuous TF using Vital High Protein at 80mL/hr goal; to provide 1920mL volume/day, 1920 kcal, 168g protein, and 1613mL water 2) additional water flush per MD on HD 3) monitor for TF tolerance 4) Consider routine phos-binder on HD if MD agreeable 5) Prealbumin q Monday/, daily scaled weights 6) Routine bowel care; likely 6 days constipation 7) DM education once stable following extubation, A1c 7.0%. Will need official new DM dx by physician prior to RD education Addendum: 02/11/21 at [address] Amended: Links added.
[2021-02-11] MEDS: bisacodyl 10mg suppository rectal RC SCH (12:25)
[2021-02-11] MEDS: normal saline 1000ml 1,000 ML IV SCH (12:47)
--- NOTE | 2021-02-11 16:30 | NUR ---
pt placed on rotoprone bed after hd. sats 90% after removal of 3l. during tx to bed and set up- sats briefly to 60- then up quickly to 85, then 87% once reverse trendelenberg prone, and rotating. bis added - 16 to 17
--- NOTE | 2021-02-11 18:00 | NUR ---
versed and fentanyl slowly decreased as continued low bis, now 30
[2021-02-11] MEDS: polyethylene glycol 3350 17gm powd pack OGT SCH (21:07)
[2021-02-11] MEDS: DOBUTamine-DoBUTrex 500mg/D5W 250 ML IV SCH (21:21)
[2021-02-12] VITALS (24 sets, daily range): BP systolic 92–160; BP diastolic 45–78
[2021-02-12] MEDS: mineral oil/petrolatum ophthal oint EACHEYE SCH ×4 (02:37→20:32)
[2021-02-12] MEDS: VANCOMYCIN LEVEL IV SCH (03:00)
[2021-02-12 03:09] LABS: ABG BASE EXCESS -5.1 mmol/L (-2.0-2.0); ABG HCO3 22.5 mmol/L (22.0-26.0); ABG OXYGEN SATURATION 90.5 % (94-97); ABG PCO2 (T) 51.3 mmHg (35.0-48.0); ABG PO2 (T) 70.9 mmHg (75.0-100.0); ALLEN'S TEST POSITIVE; FCOHb 0.1 % (0.0-3.9); FMetHb 0.4 % (0.0-1.5); PATIENT TEMPERATURE 37.2; PEEP 15 cm H2O; RESPIRATORY RATE 30 b/min; TIDAL VOLUME 500 mL; TOTAL HEMOGLOBIN 17.7 G/dl (14.0-18.0)
[2021-02-12 03:10] LABS: BASOPHILS # (AUTO) 0.1 X10'3 (0-0.2); BASOPHILS % (AUTO) 0.4 % (0-1); EOSINOPHILS % (AUTO) 0 % (0-6); HEMATOCRIT 49.3 % (42.0-52.0); HEMOGLOBIN 16.9 g/dl (14.0-17.9); LYMPHOCYTES # (AUTO) 0.2 X10'3 (1.1-4.8); LYMPHOCYTES % (AUTO) 1.1 % (21-51); MEAN CORPUSCULAR HGB CONC 34.2 g/dL (33.0-36.5); MEAN CORPUSCULAR VOLUME 99.4 FL (78-98); MEAN PLATELET VOLUME 11.1 FL (7.4-10.4); MONOCYTES # (AUTO) 1.2 X10'3 (0-0.9); MONOCYTES % (AUTO) 8.5 % (2-12); NEUTROPHILS # (AUTO) 12.3 X10'3 (1.8-7.7); PLATELET COUNT 93 X10'3 (140-440); RED BLOOD COUNT 4.96 X10'6 (4.70-6.10); WHITE BLOOD COUNT 13.6 X10'3 (4.5-11.0)
[2021-02-12] MEDS: NORepinephrine 8mg/ 250ml NS 250 ML IV SCH ×3 (03:19→22:21)
[2021-02-12 03:32] LABS: PARTIAL THROMBOPLASTIN TIME 34 SECONDS (22-32)
[2021-02-12 03:39] LABS: ALANINE AMINOTRANSFERASE 48 U/L (12-78); ALBUMIN 1.8 G/DL (3.4-5.0); ALBUMIN/GLOBULIN RATIO 0.6 (1.1-1.5); ALKALINE PHOSPHATASE 76 IU/L (46-116); ANION GAP 8 (8-16); BILIRUBIN,TOTAL 0.9 MG/DL (0.1-1.0); BLOOD UREA NITROGEN 96 MG/DL (7-18); BUN/CREATININE RATIO 13.9 (5.4-32.0); C-REACTIVE PROTEIN 1.42 MG/DL (0.0-0.5); CALCIUM 6.7 MG/DL (8.5-10.1); CHLORIDE 106 MMOL/L (99-107); CREATININE 6.89 MG/DL (0.60-1.10); GLUCOSE 125 MG/DL (70-104); SODIUM 139 MMOL/L (135-145); TOTAL CARBON DIOXIDE 24.7 MMOL/L (24-32); TRIGLYCERIDES 104 MG/DL (20-135); VANCOMYCIN,TROUGH 14.3 UG/ML (6.0-14.0); eGFR 8 ML/MIN
[2021-02-12 03:40] LABS: ASPARTATE AMINO TRANSFERASE 52 U/L (10-37)
[2021-02-12 03:43] LABS: POTASSIUM 6.2 MMOL/L (3.5-5.1)
[2021-02-12] MEDS ORDERED: sodium bicarbonate (8.4%) 1 mEq/ml syringe IV ONE (04:15)
[2021-02-12] MEDS ORDERED: sodium polystyrene sulfonate 15gm/60ml oral suspension PO ONE (04:15)
[2021-02-12] MEDS ORDERED: dextrose 50%-water 50ml dispensing syringe IV ONE (04:15)
[2021-02-12] MEDS ORDERED: calcium chloride 100 MG/1 ML inj IV ONE (04:15)
[2021-02-12] MEDS ORDERED: insulin regular, human 10 units/0.1 ml syringe IV ONE (04:45)
[2021-02-12] MEDS: FENTANYL-0.9 % NACL/PF 100 ML IV PRN ×5 (06:17→21:58)
[2021-02-12] MEDS ORDERED: calcium chloride inj. 1,000 MG in NS 100ml IV soln (110ml) IV ONE (06:20)
[2021-02-12] MEDS: CISatracurium besylate inj. 100 MG in normal saline 100ml IV soln 90 ML IV PRN ×4 (06:21→19:57)
[2021-02-12] MEDS: midazolam 100mg in NS 100ml 100 ML IV PRN ×4 (06:22→23:59)
--- NOTE | 2021-02-12 06:30 | NUR ---
Patient in room CICU 2013. I have received report from YARED and had the opportunity to ask questions and assume patient care.
[2021-02-12] MEDS ORDERED: heparin 1,000 units/ml 10ml inj IV ONE (07:35)
[2021-02-12] MEDS ORDERED: albumin (human) 25% 100ml IV 100 ML IV PRN (07:35)
[2021-02-12] MEDS ORDERED: EPOETIN ALFA-EPBX 20,000 UNIT/ML 1 ML MDV IV ONE (07:35)
[2021-02-12] MEDS ORDERED: heparin 1,000unit/ml 10ml vial 10 ML IV ONE (07:35)
[2021-02-12] MEDS ORDERED: heparin 1,000 units/ml 10ml inj HE ONE ×2 (07:40)
[2021-02-12] MEDS: insulin glargine (Lantus) pen - multi-dose SQ SCH ×2 (08:00→20:24)
[2021-02-12] MEDS: K, MAG and/or Phos replacement - Verify level? MC SCH (08:00)
[2021-02-12] MEDS: heparin, porcine 5000 units/ml vial SQ SCH (09:13)
[2021-02-12] MEDS: amiodarone 200mg tablet OGT SCH ×3 (09:14→20:39)
[2021-02-12] MEDS: dexamethasone 4mg/ml inj IV SCH ×2 (09:14→20:36)
[2021-02-12] MEDS: lactobacillus rhamnosus 10,000 MMU CELLS/CAPSULE OGT SCH ×2 (09:14→20:43)
[2021-02-12] MEDS: famotidine/PF 10 mg/ml inj IV SCH (09:14)
[2021-02-12] MEDS: docusate sodium 100mg/10ml UD cup OGT SCH ×2 (09:14→20:39)
[2021-02-12] MEDS ORDERED: heparin 25,000 UNIT/250ml bag 250 ML IV SCH (10:50)
--- NOTE | 2021-02-12 11:00 | NUR ---
UPDATE TO DR BRODERICK RE COAGS- HEPARIN GTT ORDERED WITHOUT BOLUS. UPDATE TO TELE MD. UPDATE TO TO SON-IN-LAW RE PO2. MD TO POSSIBLY CONTACT FAMILY RE PROGNOSIS.
--- NOTE | 2021-02-12 11:30 | NUR ---
TOLERATING PRONE WELL- NOW SUPINE FOR HD- SATS AT 89 TO 90%. K BACK AT 6.0 AFTER COCKTAIL- MD AWARE.
[2021-02-12] MEDS: heparin 25,000 UNIT/250ml bag 250 ML IV SCH (12:00)
[2021-02-12] MEDS: metoclopramide 5 mg/ml inj IV SCH ×2 (12:28→20:37)
--- NOTE | 2021-02-12 15:39 | NUR ---
HD COMPLETE- 2 LITERS OFF, SATS UP TO 92% WHILE SUPINE.
[2021-02-12] MEDS: polyethylene glycol 3350 17gm powd pack OGT SCH (21:57)
[2021-02-13] VITALS (27 sets, daily range): BP systolic 100–148; BP diastolic 37–84
[2021-02-13] MEDS: FENTANYL-0.9 % NACL/PF 100 ML IV PRN ×5 (01:48→17:37)
[2021-02-13 01:52] LABS: ALANINE AMINOTRANSFERASE 45 U/L (12-78); ALBUMIN 1.8 G/DL (3.4-5.0); ALBUMIN/GLOBULIN RATIO 0.5 (1.1-1.5); ALKALINE PHOSPHATASE 73 IU/L (46-116); ANION GAP 8 (8-16); ASPARTATE AMINO TRANSFERASE 49 U/L (10-37); BLOOD UREA NITROGEN 102 MG/DL (7-18); BUN/CREATININE RATIO 13.7 (5.4-32.0); C-REACTIVE PROTEIN 9.11 MG/DL (0.0-0.5); CHLORIDE 106 MMOL/L (99-107); CREATININE 7.43 MG/DL (0.60-1.10); GLUCOSE 120 MG/DL (70-104); MAGNESIUM 2.7 MG/DL (1.5-2.4); PHOSPHORUS 8.3 MG/DL (2.3-4.5); POTASSIUM 5.9 MMOL/L (3.5-5.1); SODIUM 139 MMOL/L (135-145); TOTAL CARBON DIOXIDE 25.3 MMOL/L (24-32); TOTAL PROTEIN 5.2 G/DL (6.4-8.2); VANCOMYCIN,RANDOM 11.8 UG/ML; eGFR 8 ML/MIN
[2021-02-13 01:53] LABS: EOSINOPHILS % (AUTO) 0 % (0-6); HEMOGLOBIN 16.5 g/dl (14.0-17.9); LYMPHOCYTES # (AUTO) 0.1 X10'3 (1.1-4.8); MEAN CORPUSCULAR HEMOGLOBIN 33.8 PG (27.0-31.0); NEUTROPHILS % (AUTO) 93.3 % (42-75); RED CELL DISTRIBUTION WIDTH 14.3 % (11.5-14.5)
[2021-02-13 01:55] LABS: BASOPHILS % (AUTO) 0.2 % (0-1); HEMATOCRIT 48.9 % (42.0-52.0); LYMPHOCYTES % (AUTO) 0.8 % (21-51); MEAN CORPUSCULAR HGB CONC 33.8 g/dL (33.0-36.5); MEAN CORPUSCULAR VOLUME 100.2 FL (78-98); MEAN PLATELET VOLUME 10.6 FL (7.4-10.4); MONOCYTES # (AUTO) 0.9 X10'3 (0-0.9); MONOCYTES % (AUTO) 5.7 % (2-12); PLATELET COUNT 91 X10'3 (140-440); RED BLOOD COUNT 4.88 X10'6 (4.70-6.10)
[2021-02-13 01:56] LABS: D-DIMER 18.89 MG/L FEU (0-0.50)
[2021-02-13] MEDS: mineral oil/petrolatum ophthal oint EACHEYE SCH ×4 (02:00→20:00)
[2021-02-13] MEDS: VANCOMYCIN LEVEL IV SCH (03:00)
[2021-02-13] MEDS: heparin 10,000 units/1 ML INJ IV PRN (03:01)
[2021-02-13] MEDS: heparin 25,000 UNIT/250ml bag 250 ML IV SCH ×2 (03:08→23:51)
[2021-02-13] MEDS: metoclopramide 5 mg/ml inj IV SCH (03:14)
[2021-02-13] MEDS: CISatracurium besylate inj. 100 MG in normal saline 100ml IV soln 90 ML IV PRN ×4 (03:26→15:53)
[2021-02-13 04:14] LABS: ABG BASE EXCESS -6.2 mmol/L (-2.0-2.0); ABG HCO3 25.2 mmol/L (22.0-26.0); ABG OXYGEN SATURATION 85.8 % (94-97); ABG PCO2 (T) 77.3 mmHg (35.0-48.0); ABG PO2 (T) 67.3 mmHg (75.0-100.0); FCOHb 0.3 % (0.0-3.9); FMetHb 0.5 % (0.0-1.5); FO2Hb 85.1 % (94-97); PATIENT TEMPERATURE 37.4; PEEP 15 cm H2O; RESPIRATORY RATE 30 b/min; TIDAL VOLUME 500 mL; TOTAL HEMOGLOBIN 17.7 G/dl (14.0-18.0)
--- NOTE | 2021-02-13 06:30 | NUR ---
Patient in room CICU 2013. I have received report from tee and had the opportunity to ask questions and assume patient care.
[2021-02-13 06:39] LABS: LARGE PLATELETS FEW; PLATELET ESTIMATE DECREASED
[2021-02-13] MEDS ORDERED: heparin 1,000 units/ml 10ml inj IV ONE (07:00)
[2021-02-13] MEDS ORDERED: heparin 1,000unit/ml 10ml vial 10 ML IV ONE (07:00)
[2021-02-13] MEDS ORDERED: albumin (human) 25% 100ml IV 100 ML IV PRN (07:00)
[2021-02-13] MEDS ORDERED: heparin 1,000 units/ml 10ml inj HE ONE ×2 (07:05)
[2021-02-13] MEDS: NORepinephrine 8mg/ 250ml NS 250 ML IV SCH ×2 (07:52→17:23)
[2021-02-13] MEDS: insulin glargine (Lantus) pen - multi-dose SQ SCH ×2 (08:00→20:46)
[2021-02-13] MEDS: K, MAG and/or Phos replacement - Verify level? MC SCH (08:00)
[2021-02-13] MEDS: famotidine/PF 10 mg/ml inj IV SCH (08:55)
[2021-02-13] MEDS: docusate sodium 100mg/10ml UD cup OGT SCH ×2 (08:55→20:22)
[2021-02-13] MEDS: dexamethasone 4mg/ml inj IV SCH ×2 (08:56→20:34)
[2021-02-13] MEDS: methylnaltrexone br 12mg/0.6ml inj***SubQ only SQ PRN (08:56)
[2021-02-13] MEDS: lactobacillus rhamnosus 10,000 MMU CELLS/CAPSULE OGT SCH ×2 (08:57→20:23)
[2021-02-13] MEDS: amiodarone 200mg tablet OGT SCH ×3 (08:57→20:22)
[2021-02-13] MEDS: midazolam 100mg in NS 100ml 100 ML IV PRN ×2 (08:58→17:44)
--- NOTE | 2021-02-13 10:01 | NUR ---
sats 86% to 88% on same vent settings of 100% and peep 15. pt remains sedated and paralyzed. irrigation port on ett cracked at closure- loses volumes- taped, then plugged
--- NOTE | 2021-02-13 11:00 | NUR ---
pt turned to supine to set up hd and to change dressings again r/t large thick sx. after 10" sats to 69%- pt immediately returned to prone in reverse trendelenberg and rotating- hd started, sats slowly to 80%
[2021-02-13] MEDS ORDERED: vancomycin/NS 1 GM ADD-VANTAGE 250 ML X 1 DOSE IV ONE (11:20)
[2021-02-13] MEDS: DOBUTamine-DoBUTrex 500mg/D5W 250 ML IV SCH (11:50)
[2021-02-13] MEDS: normal saline 1000ml 1,000 ML IV SCH (12:47)
--- NOTE | 2021-02-13 13:00 | NUR ---
decreased volumes when rotating prone to pts left side with decreased sat to 75. rotation decreased on left side to 20 degrees. sats continue to decrease to 50's - dr zepeda notified - family called as sats to 38. supervisor hide house and security notified that family coming in. peep increased to 18.
[2021-02-13] MEDS ORDERED: ondansetron 4mg rapidly disintigrating tab PO PRN (14:55)
--- NOTE | 2021-02-13 15:00 | NUR ---
hd stopped per dr pickett- 1500 cc off. sats then increasing to 79 to 85. pt turned to supine as facial covering removed as family here
--- NOTE | 2021-02-13 15:15 | NUR ---
family in- updated as to sats of 38, now 88. new rt chest tube large airleak noted. peep down to 15
[2021-02-13] MEDS: insulin regular, human U-100 3ml vial - multi-dose SQ SCH ×2 (15:30→20:48)
[2021-02-13] MEDS ORDERED: fentaNYL 50mcg/ml PF inj. 2,500 MCG in normal saline 250ml IV soln 200 ML EPI PRN ×3 (16:50→20:00)
--- NOTE | 2021-02-13 17:00 | NUR ---
md updated- aware of new ct leak, sat improvement- will titrate peep to 18 again if needed to keep sat at 85 or above. nurse discussed code status with family- still wants to keep pt full code. aware.
[2021-02-13] MEDS: acetaminophen 325mg/10.15ml oral unit dose solution OGT PRN (19:02)
[2021-02-13] MEDS: polyethylene glycol 3350 17gm powd pack OGT SCH (21:00)
[2021-02-14] VITALS (20 sets, daily range): BP systolic 110–156; BP diastolic 50–110
[2021-02-14] MEDS: midazolam 100mg in NS 100ml 100 ML IV PRN ×5 (00:32→20:32)
[2021-02-14] MEDS: mineral oil/petrolatum ophthal oint EACHEYE SCH ×4 (02:21→20:40)
[2021-02-14] MEDS: CISatracurium besylate inj. 100 MG in normal saline 100ml IV soln 90 ML IV PRN ×7 (02:22→22:57)
[2021-02-14] MEDS: insulin regular, human U-100 3ml vial - multi-dose SQ SCH ×3 (02:29→21:03)
[2021-02-14 02:52] LABS: ALANINE AMINOTRANSFERASE 44 U/L (12-78); ALBUMIN 1.7 G/DL (3.4-5.0); ALBUMIN/GLOBULIN RATIO 0.4 (1.1-1.5); ALKALINE PHOSPHATASE 72 IU/L (46-116); ANION GAP 6 (8-16); ASPARTATE AMINO TRANSFERASE 41 U/L (10-37); BILIRUBIN,TOTAL 0.8 MG/DL (0.1-1.0); BLOOD UREA NITROGEN 122 MG/DL (7-18); BUN/CREATININE RATIO 13.3 (5.4-32.0); C-REACTIVE PROTEIN 10.86 MG/DL (0.0-0.5); CALCIUM 6.4 MG/DL (8.5-10.1); CHLORIDE 101 MMOL/L (99-107); CREATININE 9.17 MG/DL (0.60-1.10); GLUCOSE 210 MG/DL (70-104); SODIUM 133 MMOL/L (135-145); TOTAL CARBON DIOXIDE 26.4 MMOL/L (24-32); TOTAL PROTEIN 5.5 G/DL (6.4-8.2); VANCOMYCIN,RANDOM 20.1 UG/ML; eGFR 6 ML/MIN
[2021-02-14 02:53] LABS: EOSINOPHILS % (AUTO) 0 % (0-6); LYMPHOCYTES # (AUTO) 0.1 X10'3 (1.1-4.8); MEAN CORPUSCULAR HGB CONC 34.1 g/dL (33.0-36.5); PHOSPHORUS 9.9 MG/DL (2.3-4.5)
[2021-02-14 02:54] LABS: BASOPHILS % (AUTO) 0.2 % (0-1); HEMATOCRIT 43.7 % (42.0-52.0); HEMOGLOBIN 14.9 g/dl (14.0-17.9); LYMPHOCYTES % (AUTO) 0.8 % (21-51); MEAN CORPUSCULAR HEMOGLOBIN 34.3 PG (27.0-31.0); MEAN CORPUSCULAR VOLUME 100.5 FL (78-98); MEAN PLATELET VOLUME 11.2 FL (7.4-10.4); MONOCYTES # (AUTO) 0.9 X10'3 (0-0.9); MONOCYTES % (AUTO) 6.8 % (2-12); NEUTROPHILS # (AUTO) 12.7 X10'3 (1.8-7.7); NEUTROPHILS % (AUTO) 92.2 % (42-75); PLATELET COUNT 119 X10'3 (140-440); POTASSIUM 6.6 MMOL/L (3.5-5.1); RED BLOOD COUNT 4.35 X10'6 (4.70-6.10); RED CELL DISTRIBUTION WIDTH 14.6 % (11.5-14.5); WHITE BLOOD COUNT 13.8 X10'3 (4.5-11.0)
[2021-02-14] MEDS: NORepinephrine 8mg/ 250ml NS 250 ML IV SCH ×3 (02:54→21:56)
[2021-02-14] MEDS: VANCOMYCIN LEVEL IV SCH (03:00)
[2021-02-14 03:08] LABS: ABG BASE EXCESS -5.5 mmol/L (-2.0-2.0); ABG OXYGEN SATURATION 88.4 % (94-97); ABG PCO2 (T) 65.9 mmHg (35.0-48.0); ABG PO2 (T) 69.5 mmHg (75.0-100.0); ALLEN'S TEST POSITIVE; FCOHb 0.5 % (0.0-3.9); FMetHb 0.6 % (0.0-1.5); FO2Hb 87.4 % (94-97); PATIENT TEMPERATURE 37.7; PEEP 16 cm H2O; RESPIRATORY RATE 30 b/min; TIDAL VOLUME 500 mL
[2021-02-14 03:18] LABS: D-DIMER 12.59 MG/L FEU (0-0.50)
[2021-02-14] MEDS: heparin 25,000 UNIT/250ml bag 250 ML IV SCH ×2 (03:37→22:59)
[2021-02-14] MEDS: heparin 10,000 units/1 ML INJ IV PRN (03:40)
[2021-02-14] MEDS ORDERED: insulin regular, human 10 units/0.1 ml syringe IV ONE (04:55)
[2021-02-14] MEDS ORDERED: dextrose 50%-water 50ml dispensing syringe IV ONE (04:55)
[2021-02-14] MEDS ORDERED: CALCIUM GLUC 1gm/50ml NACL,iso 50 ML IV ONE (04:55)
[2021-02-14] MEDS ORDERED: sodium bicarbonate (8.4%) inj. 150 MEQ in dextrose 5%-water 1,000 ML IV SCH (04:55)
[2021-02-14] MEDS ORDERED: sodium bicarbonate (8.4%) inj. 50 MEQ in dextrose 5%-water 1,000 ML IV SCH (04:55)
[2021-02-14 05:18] LABS: PLATELET ESTIMATE DECREASED; TOTAL CELLS COUNTED 100
[2021-02-14 05:20] LABS: LARGE PLATELETS FEW
[2021-02-14] MEDS ORDERED: sodium bicarbonate (8.4%) 1 mEq/ml syringe IV ONE (05:20)
[2021-02-14] MEDS: FENTANYL-0.9 % NACL/PF 100 ML IV PRN ×6 (05:34→21:04)
[2021-02-14] MEDS: K, MAG and/or Phos replacement - Verify level? MC SCH (07:29)
--- NOTE | 2021-02-14 07:38 | NUR ---
Patient in room [facility] 2013. I have received report from Dannie DIEGO and had the opportunity to ask questions and assume patient care. Addendum: 02/14/21 at 0739 by Sherri Woods RN Amended: Links added.
[2021-02-14] MEDS: famotidine/PF 10 mg/ml inj IV SCH (08:00)
[2021-02-14] MEDS: docusate sodium 100mg/10ml UD cup OGT SCH ×2 (08:00→20:32)
[2021-02-14] MEDS: metoclopramide 5 mg/ml inj IV SCH ×3 (08:00→15:51)
[2021-02-14] MEDS: lactobacillus rhamnosus 10,000 MMU CELLS/CAPSULE OGT SCH ×2 (08:00→20:33)
[2021-02-14] MEDS: dexamethasone 4mg/ml inj IV SCH (08:00)
[2021-02-14] MEDS: amiodarone 200mg tablet OGT SCH ×3 (08:01→20:33)
--- NOTE | 2021-02-14 08:25 | NUR ---
F/u 02/14: Pt remains intubated and sedated. TF currently ruing Vital HP at 20ml/hr w/ GRV 200ml per EMR. TF last running 30ml/hr w/ 350ml GRV 02/13. Pt documented w/ only small stools since 02/09, LBM 02/13; constipation likely impacting EN tolerance. Receiving routine colace and miralax HS per EMR. Pt's last dialysis 02/13 w/ 2L out, though HD had to stop prematurely d/t decrease in blood pressure and pt hypoxemic per MD note. Will continue to monitor for TF tolerance and adjustment needs. Recommendations: 1) Since pt off CVVH; Continuous TF using Vital High Protein at 80mL/hr goal; to provide 1920mL volume/day, 1920 kcal, 168g protein, and 1613mL water 2) additional water flush per MD on HD 3) monitor for TF tolerance 4) Consider routine phos-binder on HD if MD agreeable 5) Prealbumin q Monday/, daily scaled weights 6) Routine bowel care; likely 6 days constipation 7) DM education once stable following extubation, A1c 7.0%. Will need official new DM dx by physician prior to RD education Addendum: 02/14/21 at [address] Amended: Links added.
[2021-02-14] MEDS: insulin glargine (Lantus) pen - multi-dose SQ SCH ×2 (08:36→20:58)
--- NOTE | 2021-02-14 08:47 | NUR ---
ROUNDS NOTE: Dr. Andrade updated on all gtts, labs, txt. etc. Stated to give Kaexelate and recheck chem panel is pt. does not get HD today since lytes, nasrin. K+ are elevated.
[2021-02-14 11:48] LABS: HBSAG SCREEN Negative (Negative)
--- NOTE | 2021-02-14 12:19 | NUR ---
RN called on-call Rag Room Supervisor Dr. Dave to ask if pt. would be receiving HD today since his K has been elevated. Dr. Dave stated he will contact HD RN to come dialyse pt. today. Will not enter orders for labs and Kaexelate per Dr. Andrade since HD will happen.
--- NOTE | 2021-02-14 12:24 | NUR ---
Updated son Marshall and cousin via phone on pt. status per their request.
[2021-02-14] MEDS: bisacodyl 10mg suppository rectal RC SCH (12:25)
[2021-02-14] MEDS ORDERED: heparin 1,000 units/ml 10ml inj IV ONE (12:30)
[2021-02-14] MEDS ORDERED: heparin 1,000unit/ml 10ml vial 10 ML IV ONE (12:30)
[2021-02-14] MEDS ORDERED: heparin 1,000 units/ml 10ml inj HE ONE ×3 (12:35)
[2021-02-14] MEDS: methylPREDNISolone sod succ 125mg/2ml vial IV SCH ×2 (13:38→20:33)
--- NOTE | 2021-02-14 13:49 | NUR ---
ADILSON DIEGO Radha here to set up HD.
--- NOTE | 2021-02-14 14:05 | NUR ---
Pre HD VS: HR 97, 90% SP02, 141/74, RR 32. temp 37.1.
--- NOTE | 2021-02-14 17:12 | NUR ---
Pt. noted to be breathing over the vent rate. Sedation maxed, Nimbex increased. Will notify charge manager and MD when they become available (both at a rapid response now.)
[2021-02-14] MEDS ORDERED: propofol 1000mg/100ml bottle 100 ML IV ONE (17:22)
[2021-02-14] MEDS: propofol 1000mg/100ml bottle 100 ML IV SCH ×2 (17:29→20:31)
--- NOTE | 2021-02-14 17:42 | NUR ---
Called Dr. Andrade about pt. overbreathing vent. Order received for Propofol. Propofol started and currently titrated to effect.
--- NOTE | 2021-02-14 17:59 | NUR ---
RR lower now since Propofol has been started.
--- NOTE | 2021-02-14 18:25 | NUR ---
Problems reprioritized. Patient report given, questions answered & plan of care reviewed with Rena DIEGO. Addendum: 02/14/21 at 1826 by Sherri Woods RN Amended: Links added.
--- NOTE | 2021-02-14 18:30 | NUR ---
Patient in room CICU 2013. I have received report from Sherri DIEGO and had the opportunity to ask questions and assume patient care.
[2021-02-14] MEDS: polyethylene glycol 3350 17gm powd pack OGT SCH (20:33)
[2021-02-14 21:21] LABS: TRIGLYCERIDES 36 MG/DL (20-135)
[2021-02-15] VITALS (24 sets, daily range): BP systolic 94–137; BP diastolic 60–75
[2021-02-15] MEDS: propofol 1000mg/100ml bottle 100 ML IV SCH ×7 (00:18→23:30)
[2021-02-15] MEDS: metoclopramide 5 mg/ml inj IV SCH ×4 (00:18→23:30)
[2021-02-15] MEDS: magnesium hydroxide 30ml (MOM) UD suspension OGT PRN (00:19)
[2021-02-15] MEDS: midazolam 100mg in NS 100ml 100 ML IV PRN ×5 (00:19→21:03)
[2021-02-15] MEDS: acetaminophen 325mg/10.15ml oral unit dose solution OGT PRN ×2 (00:19→08:37)
[2021-02-15] MEDS: CISatracurium besylate inj. 100 MG in normal saline 100ml IV soln 90 ML IV PRN ×12 (01:26→23:29)
[2021-02-15] MEDS: methylPREDNISolone sod succ 125mg/2ml vial IV SCH ×4 (02:21→19:09)
[2021-02-15] MEDS: mineral oil/petrolatum ophthal oint EACHEYE SCH ×4 (02:21→19:26)
[2021-02-15] MEDS: insulin regular, human U-100 3ml vial - multi-dose SQ SCH ×4 (02:30→19:35)
[2021-02-15] MEDS: VANCOMYCIN LEVEL IV SCH (03:00)
[2021-02-15 03:02] LABS: ABG BASE EXCESS -3.2 mmol/L (-2.0-2.0); ABG HCO3 26.1 mmol/L (22.0-26.0); ABG OXYGEN SATURATION 86.5 % (94-97); ABG PCO2 (T) 68.8 mmHg (35.0-48.0); ABG PO2 (T) 69.2 mmHg (75.0-100.0); FCOHb 0.5 % (0.0-3.9); FMetHb 0.5 % (0.0-1.5); FO2Hb 85.6 % (94-97); PATIENT TEMPERATURE 38.2; RESPIRATORY RATE 30 b/min; TIDAL VOLUME 500 mL; TOTAL HEMOGLOBIN 15.3 G/dl (14.0-18.0)
[2021-02-15 03:24] LABS: BASOPHILS % (AUTO) 0.1 % (0-1); EOSINOPHILS % (AUTO) 0 % (0-6); HEMATOCRIT 42.8 % (42.0-52.0); HEMOGLOBIN 14.5 g/dl (14.0-17.9); LYMPHOCYTES # (AUTO) 0.1 X10'3 (1.1-4.8); LYMPHOCYTES % (AUTO) 0.8 % (21-51); MEAN CORPUSCULAR HEMOGLOBIN 34.3 PG (27.0-31.0); MEAN CORPUSCULAR HGB CONC 33.9 g/dL (33.0-36.5); MEAN CORPUSCULAR VOLUME 101.3 FL (78-98); MONOCYTES # (AUTO) 0.6 X10'3 (0-0.9); NEUTROPHILS # (AUTO) 11.9 X10'3 (1.8-7.7); NEUTROPHILS % (AUTO) 94.1 % (42-75); PLATELET COUNT 150 X10'3 (140-440); RED BLOOD COUNT 4.23 X10'6 (4.70-6.10); RED CELL DISTRIBUTION WIDTH 14.4 % (11.5-14.5); WHITE BLOOD COUNT 12.7 X10'3 (4.5-11.0)
[2021-02-15] MEDS: FENTANYL-0.9 % NACL/PF 100 ML IV PRN ×8 (03:32→23:30)
[2021-02-15 04:00] LABS: ALANINE AMINOTRANSFERASE 42 U/L (12-78); ALBUMIN 1.7 G/DL (3.4-5.0); ALBUMIN/GLOBULIN RATIO 0.4 (1.1-1.5); ALKALINE PHOSPHATASE 78 IU/L (46-116); ANION GAP 10 (8-16); ASPARTATE AMINO TRANSFERASE 33 U/L (10-37); BILIRUBIN,TOTAL 0.8 MG/DL (0.1-1.0); BLOOD UREA NITROGEN 100 MG/DL (7-18); BUN/CREATININE RATIO 11.8 (5.4-32.0); C-REACTIVE PROTEIN 6.58 MG/DL (0.0-0.5); CALCIUM 6.6 MG/DL (8.5-10.1); CHLORIDE 103 MMOL/L (99-107); CREATININE 8.47 MG/DL (0.60-1.10); GLUCOSE 183 MG/DL (70-104); MAGNESIUM 2.8 MG/DL (1.5-2.4); PREALBUMIN 15.2 MG/DL (19-36); SODIUM 140 MMOL/L (135-145); TOTAL CARBON DIOXIDE 26.8 MMOL/L (24-32); TOTAL PROTEIN 5.6 G/DL (6.4-8.2); TRIGLYCERIDES 76 MG/DL (20-135); eGFR 7 ML/MIN
[2021-02-15] MEDS: heparin 10,000 units/1 ML INJ IV PRN (04:24)
[2021-02-15 04:26] LABS: POTASSIUM 6.4 MMOL/L (3.5-5.1)
[2021-02-15 04:27] LABS: PHOSPHORUS 9.5 MG/DL (2.3-4.5)
[2021-02-15] MEDS: DOBUTamine-DoBUTrex 500mg/D5W 250 ML IV SCH (05:09)
[2021-02-15] MEDS ORDERED: sodium polystyrene sulfonate 15gm/60ml oral suspension PO ONE ×2 (06:10→11:40)
[2021-02-15] MEDS ORDERED: calcium gluconate inj. 2 GM in normal saline 100ml IV soln 100 ML IV ONE (06:10)
[2021-02-15] MEDS ORDERED: CALCIUM GLUC 1gm/50ml NACL,iso 100 ML IV ONE ×2 (06:25→07:30)
--- NOTE | 2021-02-15 06:32 | NUR ---
Problems reprioritized. Patient report given, questions answered & plan of care reviewed with JOHNATHON Polanco.
--- NOTE | 2021-02-15 06:50 | NUR ---
Patient in room [facility] 2013. I have received report from Rena DIEGO and had the opportunity to ask questions and assume patient care. Calcium gluconate infusing per CHETAN SINGH order for elevated K+. Awaiting Kaexelate from pharmacy. Addendum: 02/15/21 at 0651 by Sherri Woods RN Amended: Links added.
[2021-02-15] MEDS: docusate sodium 100mg/10ml UD cup OGT SCH ×2 (07:10→19:09)
[2021-02-15] MEDS: amiodarone 200mg tablet OGT SCH ×3 (07:10→19:26)
[2021-02-15] MEDS: lactobacillus rhamnosus 10,000 MMU CELLS/CAPSULE OGT SCH ×2 (07:10→19:09)
[2021-02-15] MEDS: methylnaltrexone br 12mg/0.6ml inj***SubQ only SQ PRN (07:10)
[2021-02-15] MEDS: famotidine/PF 10 mg/ml inj IV SCH (07:14)
[2021-02-15] MEDS: K, MAG and/or Phos replacement - Verify level? MC SCH (07:14)
[2021-02-15] MEDS: NORepinephrine 8mg/ 250ml NS 250 ML IV SCH ×2 (07:27→16:58)
[2021-02-15] MEDS ORDERED: vancomycin/NS 1 GM ADD-VANTAGE 250 ML X 1 DOSE IV ONE (07:45)
[2021-02-15] MEDS ORDERED: CALCIUM GLUC 1gm/50ml NACL,iso 100 ML IV SCH (08:00)
[2021-02-15] MEDS ORDERED: albumin (human) 25% 100ml IV 100 ML IV PRN (08:00)
[2021-02-15] MEDS ORDERED: heparin 1,000 units/ml 10ml inj HE ONE ×2 (08:00)
[2021-02-15] MEDS: insulin glargine (Lantus) pen - multi-dose SQ SCH ×2 (08:27→19:33)
--- NOTE | 2021-02-15 08:34 | NUR ---
AM ROUNDS NOTE: Dr. Andrade aware of pt's status. Sp02 77% currently and temp 38.7 despite Tylenol given last not. Will administer more Tylenol now.
--- NOTE | 2021-02-15 09:31 | NUR ---
JOHNATHON luevano Addendum: 02/15/21 at 932 by Sherri Woods RN RN asked Dr. Andrade if he was going to talk with family about pt's deteriorating condition. He stated he met with family on Monday and they "want everything done and that it is God's will." roof panel hanger aware of pt's deteriorating condition. Pt. remains Full Code.
--- NOTE | 2021-02-15 11:14 | NUR ---
Dr. Andrade aware of pt's SP02 71%.
--- NOTE | 2021-02-15 11:38 | NUR ---
Pt. remains with Sp02 70%. Dropped to 69% momentarily. Pt. is hot to the touch with temp of 38.4 despite Tylenol and fan faced to pt.
[2021-02-15] MEDS: normal saline 1000ml 1,000 ML IV SCH (12:47)
--- NOTE | 2021-02-15 13:11 | NUR ---
HD RN here to set up [address] Dahl here to see pt.
--- NOTE | 2021-02-15 14:28 | NUR ---
Spoke with son-in-law Marshall wallace. update.
--- NOTE | 2021-02-15 14:35 | NUR ---
Sp02 better while rotation of off and pt. is centered at 0 degrees. Sp02 77% now.
--- NOTE | 2021-02-15 15:49 | NUR ---
Sputum culture obtained and sent to lab. Blood culture x 1 obtained from HD catheter and send to lab. Emergency Department Clinician unable to obtain peripheral blood culture at this time.
--- NOTE | 2021-02-15 15:52 | NUR ---
Dr. Roman in to see pt.
--- NOTE | 2021-02-15 18:00 | NUR ---
HD completed. Pt. tolerated well. Bed is now rotating supine.
--- NOTE | 2021-02-15 18:13 | NUR ---
Problems reprioritized. Patient report given, questions answered & plan of care reviewed with Rena DIEGO. Addendum: 02/15/21 at 1814 by Sherri Woods RN Amended: Links added.
--- NOTE | 2021-02-15 18:30 | NUR ---
Patient in room CICU 2013. I have received report from Sherri DIEGO and had the opportunity to ask questions and assume patient care.
[2021-02-15] MEDS: heparin 25,000 UNIT/250ml bag 250 ML IV SCH (18:41)
[2021-02-15] MEDS: polyethylene glycol 3350 17gm powd pack OGT SCH (19:27)
[2021-02-16] VITALS (24 sets, daily range): BP systolic 100–135; BP diastolic 42–70
[2021-02-16] MEDS: methylPREDNISolone sod succ 125mg/2ml vial IV SCH ×4 (01:45→19:59)
[2021-02-16] MEDS: FENTANYL-0.9 % NACL/PF 100 ML IV PRN ×3 (01:46→08:13)
[2021-02-16] MEDS: CISatracurium besylate inj. 100 MG in normal saline 100ml IV soln 90 ML IV PRN ×3 (01:46→06:15)
[2021-02-16] MEDS: midazolam 100mg in NS 100ml 100 ML IV PRN ×4 (01:46→19:06)
[2021-02-16] MEDS: propofol 1000mg/100ml bottle 100 ML IV SCH ×5 (01:47→19:58)
[2021-02-16] MEDS: insulin regular, human U-100 3ml vial - multi-dose SQ SCH ×4 (01:54→20:05)
[2021-02-16] MEDS: mineral oil/petrolatum ophthal oint EACHEYE SCH ×4 (02:23→19:59)
[2021-02-16] MEDS: NORepinephrine 8mg/ 250ml NS 250 ML IV SCH ×3 (02:24→21:26)
[2021-02-16] MEDS: VANCOMYCIN LEVEL IV SCH ×2 (02:25→21:27)
[2021-02-16 02:59] LABS: ABG BASE EXCESS -5.6 mmol/L (-2.0-2.0); ABG HCO3 23.4 mmol/L (22.0-26.0); ABG OXYGEN SATURATION 79.3 % (94-97); ABG PCO2 (T) 62.5 mmHg (35.0-48.0); ABG PO2 (T) 54.5 mmHg (75.0-100.0); FCOHb 0.8 % (0.0-3.9); FMetHb 0.5 % (0.0-1.5); FO2Hb 78.3 % (94-97); PATIENT TEMPERATURE 37.6; PEEP 16 cm H2O; RESPIRATORY RATE 30 b/min; TIDAL VOLUME 500 mL; TOTAL HEMOGLOBIN 15.1 G/dl (14.0-18.0)
[2021-02-16 03:12] LABS: BASOPHILS % (AUTO) 0.2 % (0-1); EOSINOPHILS % (AUTO) 0 % (0-6); HEMATOCRIT 41.3 % (42.0-52.0); HEMOGLOBIN 14.1 g/dl (14.0-17.9); LYMPHOCYTES # (AUTO) 0.1 X10'3 (1.1-4.8); MEAN CORPUSCULAR HGB CONC 34.1 g/dL (33.0-36.5); MEAN CORPUSCULAR VOLUME 99.8 FL (78-98); MEAN PLATELET VOLUME 10.9 FL (7.4-10.4); MONOCYTES % (AUTO) 6.9 % (2-12); NEUTROPHILS # (AUTO) 13.1 X10'3 (1.8-7.7); NEUTROPHILS % (AUTO) 91.9 % (42-75); PLATELET COUNT 154 X10'3 (140-440); RED BLOOD COUNT 4.14 X10'6 (4.70-6.10); RED CELL DISTRIBUTION WIDTH 14.3 % (11.5-14.5); WHITE BLOOD COUNT 14.3 X10'3 (4.5-11.0)
[2021-02-16 03:28] LABS: D-DIMER 5.24 MG/L FEU (0-0.50)
[2021-02-16 03:41] LABS: C-REACTIVE PROTEIN 4.11 MG/DL (0.0-0.5); MAGNESIUM 2.9 MG/DL (1.5-2.4); VANCOMYCIN,RANDOM 15.8 UG/ML
[2021-02-16 03:46] LABS: PHOSPHORUS 9.7 MG/DL (2.3-4.5)
[2021-02-16 04:27] LABS: ALANINE AMINOTRANSFERASE 43 U/L (12-78); ALBUMIN 1.8 G/DL (3.4-5.0); ALBUMIN/GLOBULIN RATIO 0.5 (1.1-1.5); ALKALINE PHOSPHATASE 66 IU/L (46-116); ANION GAP 6 (8-16); ASPARTATE AMINO TRANSFERASE 32 U/L (10-37); BILIRUBIN,TOTAL 0.9 MG/DL (0.1-1.0); BLOOD UREA NITROGEN 89 MG/DL (7-18); BUN/CREATININE RATIO 11.1 (5.4-32.0); CALCIUM 6.6 MG/DL (8.5-10.1); CHLORIDE 98 MMOL/L (99-107); CREATININE 7.99 MG/DL (0.60-1.10); GLUCOSE 246 MG/DL (70-104); POTASSIUM 5.9 MMOL/L (3.5-5.1); SODIUM 129 MMOL/L (135-145); TOTAL CARBON DIOXIDE 24.6 MMOL/L (24-32); TOTAL PROTEIN 5.6 G/DL (6.4-8.2); eGFR 7 ML/MIN
[2021-02-16] MEDS: magnesium hydroxide 30ml (MOM) UD suspension OGT PRN (04:27)
[2021-02-16 05:57] LABS: LARGE PLATELETS FEW; PLATELET ESTIMATE NORMAL
--- NOTE | 2021-02-16 06:17 | NUR ---
Problems reprioritized. Patient report given, questions answered & plan of care reviewed with JOHNATHON Polanco.
--- NOTE | 2021-02-16 06:30 | NUR ---
Patient in room [facility] 2013. I have received report from Rena DIEGO and had the opportunity to ask questions and assume patient care. Addendum: 02/16/21 at 0633 by Sherri Woods RN Amended: Links added.
[2021-02-16] MEDS: K, MAG and/or Phos replacement - Verify level? MC SCH (07:20)
[2021-02-16] MEDS: metoclopramide 5 mg/ml inj IV SCH ×2 (07:20→15:59)
[2021-02-16] MEDS: famotidine/PF 10 mg/ml inj IV SCH (07:20)
[2021-02-16] MEDS: amiodarone 200mg tablet OGT SCH ×2 (07:20→19:58)
[2021-02-16] MEDS: docusate sodium 100mg/10ml UD cup OGT SCH ×2 (07:20→19:58)
[2021-02-16] MEDS: lactobacillus rhamnosus 10,000 MMU CELLS/CAPSULE OGT SCH ×2 (07:20→19:59)
[2021-02-16] MEDS ORDERED: heparin 1,000 units/ml 10ml inj HE ONE ×2 (08:00)
[2021-02-16] MEDS ORDERED: normal saline 1000ml 250 ML IV PRN (08:00)
[2021-02-16] MEDS ORDERED: normal saline 1000ml 100 ML IV PRN (08:00)
[2021-02-16] MEDS: insulin glargine (Lantus) pen - multi-dose SQ SCH ×2 (08:02→20:03)
--- NOTE | 2021-02-16 08:40 | NUR ---
Drs. Roman and Raymond here to see pt.
--- NOTE | 2021-02-16 10:09 | NUR ---
Pt. taken off Rotoprone bed and placed on regular bed. Tolerated well.
--- NOTE | 2021-02-16 10:24 | NUR ---
HD RN setting up HD now. VSS. Sp02 79%.
[2021-02-16] MEDS: DOBUTamine-DoBUTrex 500mg/D5W 250 ML IV SCH (11:02)
[2021-02-16] MEDS: heparin 25,000 UNIT/250ml bag 250 ML IV SCH ×2 (11:32→14:33)
--- NOTE | 2021-02-16 11:52 | NUR ---
F/u 02/17: Pt now off rotoprone remains intubated on daily HD for TI per EMR. Noted propofol increasing to 25.334ml/hr decreased to 21.12ml/hr this AM providing additional 558 kcals/day at current rate. Etl Analyst Developer agreeable w/ TF adjustments per RD recs to avoid overfeeding on vent; recs below. TF currently at goal w/ GRV's 350-475ml MD aware. Pt only britney/smears past 7 days last rectal tube output documented 02/09 60ml. receiving routine colace, miralax HS, reglan, and relistor started yesterday per EMR. Phos 9.7 today; MD is agreeable for phos binder since on HD. Will continue to monitor for further EN tolerance and adjustment needs on vent. Recommendations: 1) Given current propofol rate; continuous TF using Vital High Protein at 65ml/hr providing 1560ml volume/day, 1560kcals, 1310ml free water, and 137g protein 2) IF pt off propofol OR weaned to 11.55ml/hr or less; resume TF using Vital High Protein at 80mL/hr goal; to provide 1920mL volume/day, 1920 kcal, 168g protein, and 1613mL water 3) additional water flush per MD on HD 4) monitor for TF tolerance 5) phos-binder on HD 6) Prealbumin q Monday/, daily weights 7) Routine bowel care; 7 days constipation 8) DM education once stable following extubation, A1c 7.0%. Will need official new DM dx by physician prior to RD education Addendum: 02/16/21 at [address] Amended: Links added. Addendum: 02/16/21 at [address] CORRECTION: [place] 02/16*
[2021-02-16] MEDS: fentaNYL/PF inj 2,500 MCG in normal saline 250ml IV soln 200 ML IV PRN ×3 (12:09→20:00)
[2021-02-16] MEDS: sevelamer carbonate 0.8gm powder pkt PO SCH ×2 (12:30→17:22)
--- NOTE | 2021-02-16 12:51 | NUR ---
[facility] #[id number].
--- NOTE | 2021-02-16 15:08 | NUR ---
RLE (lateral area)large fluid-filled blister noted. SCD removed. WOC consult ordered. Will continue to monitor.
--- NOTE | 2021-02-16 15:36 | NUR ---
[place] fast placed on ETT per RT.
--- NOTE | 2021-02-16 16:41 | NUR ---
Patient's Cheryl called to have RN tell pt. "Happy Anniversary" and that she loves him. She stated she did not want an update though. No update given. RN relayed the message to pt.
--- NOTE | 2021-02-16 18:11 | NUR ---
Problems reprioritized. Patient report given, questions answered & plan of care reviewed with Rena DIEGO.
--- NOTE | 2021-02-16 18:30 | NUR ---
Patient in room [facility] 2013. I have received report from JOHNATHON Polanco and had the opportunity to ask questions and assume patient care.
[2021-02-16] MEDS: polyethylene glycol 3350 17gm powd pack OGT SCH (20:00)
[2021-02-17] VITALS (24 sets, daily range): BP systolic 101–122; BP diastolic 40–52
[2021-02-17] MEDS: metoclopramide 5 mg/ml inj IV SCH ×3 (00:27→16:22)
[2021-02-17] MEDS: methylPREDNISolone sod succ 125mg/2ml vial IV SCH ×4 (01:34→20:00)
[2021-02-17] MEDS: mineral oil/petrolatum ophthal oint EACHEYE SCH ×4 (01:34→20:00)
[2021-02-17] MEDS: midazolam 100mg in NS 100ml 100 ML IV PRN ×4 (01:34→23:11)
[2021-02-17] MEDS: propofol 1000mg/100ml bottle 100 ML IV SCH ×4 (01:35→20:29)
[2021-02-17] MEDS: insulin regular, human U-100 3ml vial - multi-dose SQ SCH ×4 (01:49→21:42)
[2021-02-17 02:45] LABS: BASOPHILS % (AUTO) 0.1 % (0-1); EOSINOPHILS % (AUTO) 0 % (0-6); HEMATOCRIT 44.3 % (42.0-52.0); HEMOGLOBIN 14.8 g/dl (14.0-17.9); LYMPHOCYTES # (AUTO) 0.1 X10'3 (1.1-4.8); LYMPHOCYTES % (AUTO) 0.9 % (21-51); MEAN CORPUSCULAR HEMOGLOBIN 34.1 PG (27.0-31.0); MEAN CORPUSCULAR HGB CONC 33.3 g/dL (33.0-36.5); MEAN CORPUSCULAR VOLUME 102.2 FL (78-98); MEAN PLATELET VOLUME 10.9 FL (7.4-10.4); MONOCYTES # (AUTO) 1.1 X10'3 (0-0.9); MONOCYTES % (AUTO) 6.1 % (2-12); NEUTROPHILS # (AUTO) 16.2 X10'3 (1.8-7.7); NEUTROPHILS % (AUTO) 92.9 % (42-75); PLATELET COUNT 130 X10'3 (140-440); RED BLOOD COUNT 4.33 X10'6 (4.70-6.10); RED CELL DISTRIBUTION WIDTH 14.4 % (11.5-14.5); WHITE BLOOD COUNT 17.4 X10'3 (4.5-11.0)
[2021-02-17 02:56] LABS: D-DIMER 3.43 MG/L FEU (0-0.50)
[2021-02-17 03:06] LABS: ALANINE AMINOTRANSFERASE 42 U/L (12-78); ALBUMIN 1.8 G/DL (3.4-5.0); ALBUMIN/GLOBULIN RATIO 0.5 (1.1-1.5); ALKALINE PHOSPHATASE 60 IU/L (46-116); ANION GAP 13 (8-16); ASPARTATE AMINO TRANSFERASE 29 U/L (10-37); BILIRUBIN,TOTAL 0.9 MG/DL (0.1-1.0); BLOOD UREA NITROGEN 96 MG/DL (7-18); BUN/CREATININE RATIO 11.7 (5.4-32.0); CALCIUM 6.5 MG/DL (8.5-10.1); CHLORIDE 100 MMOL/L (99-107); CREATININE 8.24 MG/DL (0.60-1.10); GLUCOSE 254 MG/DL (70-104); SODIUM 137 MMOL/L (135-145); TOTAL CARBON DIOXIDE 23.8 MMOL/L (24-32); TOTAL PROTEIN 5.7 G/DL (6.4-8.2); VANCOMYCIN,RANDOM 11.1 UG/ML; eGFR 7 ML/MIN
[2021-02-17 03:11] LABS: ABG BASE EXCESS -6.7 mmol/L (-2.0-2.0); ABG HCO3 23.5 mmol/L (22.0-26.0); ABG OXYGEN SATURATION 90.2 % (94-97); ABG PCO2 (T) 65.5 mmHg (35.0-48.0); ABG PO2 (T) 69.9 mmHg (75.0-100.0); FMetHb 0.5 % (0.0-1.5); FO2Hb 88.8 % (94-97); PATIENT TEMPERATURE 36.3; PEEP 16 cm H2O; RESPIRATORY RATE 30 b/min; TIDAL VOLUME 500 mL; TOTAL HEMOGLOBIN 15.6 G/dl (14.0-18.0)
[2021-02-17 03:17] LABS: PHOSPHORUS 10.1 MG/DL (2.3-4.5)
[2021-02-17 03:19] LABS: POTASSIUM 6.6 MMOL/L (3.5-5.1)
[2021-02-17] MEDS ORDERED: insulin regular, human 10 units/0.1 ml syringe IV ONE (03:30)
[2021-02-17] MEDS ORDERED: CALCIUM GLUC 1gm/50ml NACL,iso 50 ML IV ONE (03:30)
[2021-02-17] MEDS: heparin 10,000 units/1 ML INJ IV PRN (03:56)
[2021-02-17] MEDS: heparin 25,000 UNIT/250ml bag 250 ML IV SCH ×2 (04:01→20:46)
[2021-02-17] MEDS: fentaNYL/PF inj 2,500 MCG in normal saline 250ml IV soln 200 ML IV PRN ×3 (04:08→21:50)
--- NOTE | 2021-02-17 06:24 | NUR ---
Problems reprioritized. Patient report given, questions answered & plan of care reviewed with JOHNATHON Fernandez.
[2021-02-17] MEDS: NORepinephrine 8mg/ 250ml NS 250 ML IV SCH ×2 (07:02→16:17)
[2021-02-17] MEDS: K, MAG and/or Phos replacement - Verify level? MC SCH (07:19)
[2021-02-17] MEDS: famotidine/PF 10 mg/ml inj IV SCH (07:40)
[2021-02-17] MEDS: docusate sodium 100mg/10ml UD cup OGT SCH ×2 (07:42→20:00)
[2021-02-17] MEDS: amiodarone 200mg tablet OGT SCH ×2 (07:42→20:00)
[2021-02-17] MEDS: lactobacillus rhamnosus 10,000 MMU CELLS/CAPSULE OGT SCH ×2 (07:42→20:00)
[2021-02-17] MEDS: sevelamer carbonate 0.8gm powder pkt PO SCH ×3 (07:46→17:54)
[2021-02-17] MEDS: insulin glargine (Lantus) pen - multi-dose SQ SCH ×2 (08:00→20:00)
[2021-02-17] MEDS ORDERED: vancomycin/NS 1 GM ADD-VANTAGE 250 ML X 1 DOSE IV ONE (08:05)
[2021-02-17] MEDS ORDERED: normal saline 1000ml 100 ML IV PRN (10:40)
[2021-02-17] MEDS ORDERED: normal saline 1000ml 250 ML IV PRN (10:40)
[2021-02-17] MEDS ORDERED: heparin 1,000 units/ml 10ml inj HE ONE ×2 (10:40)
[2021-02-17] MEDS: bisacodyl 10mg suppository rectal RC SCH (12:16)
[2021-02-17] MEDS: normal saline 1000ml 1,000 ML IV SCH (12:47)
[2021-02-17] MEDS: polyethylene glycol 3350 17gm powd pack OGT SCH (21:00)
[2021-02-18] VITALS (24 sets, daily range): BP systolic 0–129; BP diastolic 0–82
[2021-02-18] MEDS: mineral oil/petrolatum ophthal oint EACHEYE SCH ×5 (02:00→19:32)
[2021-02-18] MEDS: propofol 1000mg/100ml bottle 100 ML IV SCH ×3 (02:31→15:01)
[2021-02-18 03:00] LABS: ABG HCO3 22.6 mmol/L (22.0-26.0); ABG OXYGEN SATURATION 91.5 % (94-97); ABG PO2 (T) 92.3 mmHg (75.0-100.0); FCOHb 0.4 % (0.0-3.9); FMetHb 0.8 % (0.0-1.5); FO2Hb 90.4 % (94-97); PATIENT TEMPERATURE 39.2; PEEP 16 cm H2O; RESPIRATORY RATE 30 b/min; TIDAL VOLUME 500 mL
[2021-02-18 03:26] LABS: BASOPHILS # (AUTO) 0.1 X10'3 (0-0.2); BASOPHILS % (AUTO) 0.4 % (0-1); EOSINOPHILS % (AUTO) 0 % (0-6); HEMATOCRIT 44.6 % (42.0-52.0); LYMPHOCYTES # (AUTO) 0.1 X10'3 (1.1-4.8); LYMPHOCYTES % (AUTO) 0.5 % (21-51); MEAN CORPUSCULAR HEMOGLOBIN 33.7 PG (27.0-31.0); MEAN CORPUSCULAR HGB CONC 33.6 g/dL (33.0-36.5); MEAN CORPUSCULAR VOLUME 100.2 FL (78-98); MEAN PLATELET VOLUME 11.3 FL (7.4-10.4); MONOCYTES # (AUTO) 1.3 X10'3 (0-0.9); MONOCYTES % (AUTO) 5.8 % (2-12); NEUTROPHILS # (AUTO) 21.9 X10'3 (1.8-7.7); NEUTROPHILS % (AUTO) 93.3 % (42-75); PLATELET COUNT 118 X10'3 (140-440); RED BLOOD COUNT 4.45 X10'6 (4.70-6.10); RED CELL DISTRIBUTION WIDTH 14.3 % (11.5-14.5); WHITE BLOOD COUNT 23.4 X10'3 (4.5-11.0)
[2021-02-18] MEDS: insulin regular, human U-100 3ml vial - multi-dose SQ SCH ×4 (03:30→19:26)
[2021-02-18] MEDS: methylPREDNISolone sod succ 125mg/2ml vial IV SCH ×4 (03:33→19:18)
[2021-02-18 03:40] LABS: D-DIMER 2.69 MG/L FEU (0-0.50)
[2021-02-18] MEDS: midazolam 100mg in NS 100ml 100 ML IV PRN ×4 (04:23→23:32)
[2021-02-18 04:24] LABS: ALANINE AMINOTRANSFERASE 49 U/L (12-78); ALBUMIN/GLOBULIN RATIO 0.5 (1.1-1.5); ALKALINE PHOSPHATASE 62 IU/L (46-116); ANION GAP 13 (8-16); ASPARTATE AMINO TRANSFERASE 35 U/L (10-37); BLOOD UREA NITROGEN 110 MG/DL (7-18); BUN/CREATININE RATIO 13.4 (5.4-32.0); C-REACTIVE PROTEIN 2.09 MG/DL (0.0-0.5); CALCIUM 6.3 MG/DL (8.5-10.1); CHLORIDE 98 MMOL/L (99-107); CREATININE 8.21 MG/DL (0.60-1.10); GLUCOSE 315 MG/DL (70-104); PREALBUMIN 31.3 MG/DL (19-36); SODIUM 134 MMOL/L (135-145); TOTAL CARBON DIOXIDE 23.3 MMOL/L (24-32); VANCOMYCIN,RANDOM 16.9 UG/ML; eGFR 7 ML/MIN
[2021-02-18 04:27] LABS: PHOSPHORUS 10.4 MG/DL (2.3-4.5)
[2021-02-18 04:28] LABS: POTASSIUM 7.6 MMOL/L (3.5-5.1)
[2021-02-18] MEDS ORDERED: insulin regular, human 10 units/0.1 ml syringe IV ONE (04:40)
[2021-02-18] MEDS ORDERED: sodium polystyrene sulfonate 15gm/60ml oral suspension PO ONE (04:40)
[2021-02-18] MEDS: CALCIUM GLUC 1gm/50ml NACL,iso 50 ML IV SCH ×2 (05:21→06:41)
[2021-02-18] MEDS: NORepinephrine 8mg/ 250ml NS 250 ML IV SCH ×3 (06:00→21:06)
[2021-02-18] MEDS: fentaNYL/PF inj 2,500 MCG in normal saline 250ml IV soln 200 ML IV PRN ×3 (06:36→23:58)
[2021-02-18] MEDS: VANCOMYCIN LEVEL IV SCH (06:42)
[2021-02-18] MEDS: DOBUTamine-DoBUTrex 500mg/D5W 250 ML IV SCH ×2 (06:43→16:59)
[2021-02-18] MEDS ORDERED: normal saline 1000ml 250 ML IV PRN (07:10)
[2021-02-18] MEDS ORDERED: normal saline 1000ml 100 ML IV PRN (07:10)
[2021-02-18] MEDS ORDERED: heparin 1,000 units/ml 10ml inj HE ONE ×2 (07:15)
--- NOTE | 2021-02-18 07:27 | NUR ---
Malfunction with vital monitor unable to retrieve a few BP values. Samantha BSN RN
[2021-02-18] MEDS: K, MAG and/or Phos replacement - Verify level? MC SCH (08:00)
[2021-02-18] MEDS: metoclopramide 5 mg/ml inj IV SCH ×3 (08:09→16:32)
[2021-02-18] MEDS: docusate sodium 100mg/10ml UD cup OGT SCH ×2 (08:09→20:00)
[2021-02-18] MEDS: famotidine/PF 10 mg/ml inj IV SCH (08:10)
[2021-02-18] MEDS: sevelamer carbonate 0.8gm powder pkt PO SCH ×3 (08:10→16:58)
[2021-02-18] MEDS: lactobacillus rhamnosus 10,000 MMU CELLS/CAPSULE OGT SCH ×2 (08:10→19:18)
[2021-02-18] MEDS: amiodarone 200mg tablet OGT SCH ×2 (08:10→20:00)
[2021-02-18] MEDS: insulin glargine (Lantus) pen - multi-dose SQ SCH ×2 (09:11→19:21)
[2021-02-18] MEDS: heparin 25,000 UNIT/250ml bag 250 ML IV SCH (09:12)
[2021-02-18] MEDS: SODIUM ZIRCONIUM CYCLOSILICATE 10 GM POWD.PACK PO SCH ×2 (10:01→15:20)
[2021-02-18 14:03] LABS: ALBUMIN 1.8 G/DL (3.4-5.0); ANION GAP 11 (8-16); BLOOD UREA NITROGEN 88 MG/DL (7-18); BUN/CREATININE RATIO 12.9 (5.4-32.0); CALCIUM 6.4 MG/DL (8.5-10.1); CHLORIDE 99 MMOL/L (99-107); CREATININE 6.81 MG/DL (0.60-1.10); GLUCOSE 359 MG/DL (70-104); SODIUM 135 MMOL/L (135-145); TOTAL CARBON DIOXIDE 25.4 MMOL/L (24-32); eGFR 9 ML/MIN
[2021-02-18 14:07] LABS: POTASSIUM 6.3 MMOL/L (3.5-5.1)
[2021-02-18] MEDS: acetaminophen 325mg/10.15ml oral unit dose solution OGT PRN (15:20)
[2021-02-18] MEDS ORDERED: sodium polystyrene sulfonate ENEMA 30gm/120ml RC ONE (15:30)
[2021-02-18] MEDS: polyethylene glycol 3350 17gm powd pack OGT SCH (19:33)
[2021-02-19] VITALS (24 sets, daily range): BP systolic 96–138; BP diastolic 28–58
[2021-02-19] MEDS: metoclopramide 5 mg/ml inj IV SCH ×4 (01:02→22:58)
[2021-02-19] MEDS: SODIUM ZIRCONIUM CYCLOSILICATE 10 GM POWD.PACK PO SCH ×4 (01:09→22:58)
[2021-02-19] MEDS: insulin regular, human U-100 3ml vial - multi-dose SQ SCH ×4 (01:29→19:34)
[2021-02-19 01:46] LABS: BASOPHILS # (AUTO) 0.1 X10'3 (0-0.2); BASOPHILS % (AUTO) 0.4 % (0-1); EOSINOPHILS % (AUTO) 0.1 % (0-6); HEMATOCRIT 43.6 % (42.0-52.0); HEMOGLOBIN 14.6 g/dl (14.0-17.9); LYMPHOCYTES # (AUTO) 0.3 X10'3 (1.1-4.8); LYMPHOCYTES % (AUTO) 0.9 % (21-51); MEAN CORPUSCULAR HEMOGLOBIN 33.7 PG (27.0-31.0); MEAN CORPUSCULAR HGB CONC 33.5 g/dL (33.0-36.5); MEAN CORPUSCULAR VOLUME 100.5 FL (78-98); MEAN PLATELET VOLUME 11.8 FL (7.4-10.4); MONOCYTES # (AUTO) 0.8 X10'3 (0-0.9); MONOCYTES % (AUTO) 2.4 % (2-12); NEUTROPHILS # (AUTO) 31.9 X10'3 (1.8-7.7); NEUTROPHILS % (AUTO) 96.2 % (42-75); PLATELET COUNT 64 X10'3 (140-440); RED BLOOD COUNT 4.34 X10'6 (4.70-6.10); RED CELL DISTRIBUTION WIDTH 14.3 % (11.5-14.5)
[2021-02-19 01:57] LABS: D-DIMER 3.06 MG/L FEU (0-0.50)
[2021-02-19] MEDS: methylPREDNISolone sod succ 125mg/2ml vial IV SCH ×4 (02:00→19:35)
[2021-02-19 02:09] LABS: ALANINE AMINOTRANSFERASE 63 U/L (12-78); ALBUMIN 1.8 G/DL (3.4-5.0); ALBUMIN/GLOBULIN RATIO 0.5 (1.1-1.5); ALKALINE PHOSPHATASE 59 IU/L (46-116); ANION GAP 16 (8-16); ASPARTATE AMINO TRANSFERASE 61 U/L (10-37); BILIRUBIN,TOTAL 1.1 MG/DL (0.1-1.0); BLOOD UREA NITROGEN 117 MG/DL (7-18); BUN/CREATININE RATIO 13.3 (5.4-32.0); C-REACTIVE PROTEIN 2.79 MG/DL (0.0-0.5); CALCIUM 6.1 MG/DL (8.5-10.1); CHLORIDE 94 MMOL/L (99-107); CREATININE 8.79 MG/DL (0.60-1.10); GLUCOSE 274 MG/DL (70-104); MAGNESIUM 2.9 MG/DL (1.5-2.4); SODIUM 133 MMOL/L (135-145); TOTAL CARBON DIOXIDE 23.4 MMOL/L (24-32); TOTAL PROTEIN 5.6 G/DL (6.4-8.2); TRIGLYCERIDES 98 MG/DL (20-135); VANCOMYCIN,RANDOM 12.7 UG/ML; eGFR 6 ML/MIN
[2021-02-19 02:12] LABS: PHOSPHORUS 11.1 MG/DL (2.3-4.5)
[2021-02-19 02:16] LABS: POTASSIUM 6.2 MMOL/L (3.5-5.1)
[2021-02-19 02:17] LABS: WHITE BLOOD COUNT 33.1 X10'3 (4.5-11.0)
[2021-02-19] MEDS: VANCOMYCIN LEVEL IV SCH (03:00)
[2021-02-19 03:52] LABS: ABG BASE EXCESS -9.2 mmol/L (-2.0-2.0); ABG HCO3 21.6 mmol/L (22.0-26.0); ABG OXYGEN SATURATION 88.5 % (94-97); ABG PCO2 (T) 69.4 mmHg (35.0-48.0); ABG PO2 (T) 69.9 mmHg (75.0-100.0); FCOHb 0.8 % (0.0-3.9); FMetHb 0.4 % (0.0-1.5); FO2Hb 87.4 % (94-97); PATIENT TEMPERATURE 37.2; PEEP 16 cm H2O; RESPIRATORY RATE 30 b/min; TIDAL VOLUME 500 mL; TOTAL HEMOGLOBIN 15.5 G/dl (14.0-18.0)
[2021-02-19 05:01] LABS: PLATELET ESTIMATE DECREASED; TOTAL CELLS COUNTED 100
[2021-02-19 05:02] LABS: SMUDGE CELLS 1+; TOXIC GRANULATION 1+; TOXIC VACUOLATION 2+
[2021-02-19 05:03] LABS: LARGE PLATELETS FEW
[2021-02-19] MEDS: midazolam 100mg in NS 100ml 100 ML IV PRN ×3 (06:32→18:42)
[2021-02-19] MEDS: heparin 25,000 UNIT/250ml bag 250 ML IV SCH (06:33)
[2021-02-19] MEDS: NORepinephrine 8mg/ 250ml NS 250 ML IV SCH ×3 (06:37→23:14)
[2021-02-19] MEDS ORDERED: albumin (human) 25% 100ml IV 100 ML IV PRN (07:10)
[2021-02-19] MEDS ORDERED: heparin 1,000 units/ml 10ml inj HE ONE ×4 (07:15→08:00)
[2021-02-19] MEDS: K, MAG and/or Phos replacement - Verify level? MC SCH (08:00)
[2021-02-19] MEDS ORDERED: sod chloride 0.9% 10ml flush syringe IV ONE (08:00)
[2021-02-19] MEDS ORDERED: epiNEPHrine 0.1mg/ml 10ml syringe ONE (08:00)
[2021-02-19] MEDS ORDERED: sodium bicarbonate (8.4%) 1 mEq/ml syringe ONE (08:00)
[2021-02-19] MEDS ORDERED: normal saline 1000ml 100 ML IV PRN (08:00)
[2021-02-19] MEDS ORDERED: normal saline 1000ml 250 ML IV PRN (08:00)
[2021-02-19] MEDS: lactobacillus rhamnosus 10,000 MMU CELLS/CAPSULE OGT SCH ×2 (08:55→19:36)
[2021-02-19] MEDS: docusate sodium 100mg/10ml UD cup OGT SCH ×2 (08:55→19:38)
[2021-02-19] MEDS: sevelamer carbonate 0.8gm powder pkt PO SCH ×3 (08:55→17:19)
[2021-02-19] MEDS: famotidine/PF 10 mg/ml inj IV SCH (08:55)
[2021-02-19] MEDS: amiodarone 200mg tablet OGT SCH ×2 (08:55→19:35)
[2021-02-19] MEDS: mineral oil/petrolatum ophthal oint EACHEYE SCH ×3 (08:56→19:39)
[2021-02-19] MEDS: insulin glargine (Lantus) pen - multi-dose SQ SCH ×2 (09:04→19:29)
[2021-02-19] MEDS: fentaNYL/PF inj 2,500 MCG in normal saline 250ml IV soln 200 ML IV PRN ×2 (09:47→18:44)
[2021-02-19] MEDS: normal saline 1000ml 1,000 ML IV SCH (12:47)
--- NOTE | 2021-02-19 12:52 | NUR ---
Reassessment: Pt remains intubated and tolerating TF at goal rate with GRV WNL. Noted Propofol rate has been reduced, currently running at 4.224 mL/hr providing roughly 112 kcal/day. Recommend adjusting TF to best meet patient's estimated nutrient needs, d/w MD at critical care rounds who agrees. See updated recommendations below that will be d/w RN. Noted Phos binder rx was increased given increasing serum Phos. LBM 02/11 despite receiving multiple bowel care medications and prokinetic agent, MD aware. Noted PRN MoM was discontinued today, pt last documented to have received it 02/16. Will continue to follow and make recommendations as appropriate. Recommendations: 1) Continuous TF via OGT using Vital High Protein with goal rate of 90 mL/hr to provide 2160 mL total volume/day, 2160 kcal, 189 g protein, and 1806 mL water 2) Monitor Propofol rate and adjust TF recommendations as appropriate 3) Additional water flush per MD on HD 4) Continue Phos binder given pt on HD 6) Prealbumin q Monday/, daily scaled weights 7) Routine bowel care; 8 days constipation 8) DM education once stable following extubation, A1c 7.0%. Will need official new DM dx by physician prior to RD education Addendum: 02/19/21 at [address] Amended: Links added.
[2021-02-19] MEDS ORDERED: cefepime 1GM/NS ADD-VANTAGE 100 ML IV ONE (14:27)
[2021-02-19] MEDS ORDERED: vancomycin/NS 1 GM ADD-VANTAGE 250 ML X 1 DOSE IV ONE (15:00)
[2021-02-19] MEDS: propofol 1000mg/100ml bottle 100 ML IV SCH (15:40)
--- NOTE | 2021-02-19 16:30 | NUR ---
Patient's SBP down in the 70s after 3.5L fluid off during dialysis. 500ml NS bolus given to patient and Dr. Dave called with orders to administer 500ml of 5% Albumin and restart Levophed. MD aware Dobutamine back up to 5mcg/kg/min.
[2021-02-19] MEDS ORDERED: albumin (Human) 5% 250ml 250 ML IV ONE ×3 (16:40→16:46)
--- NOTE | 2021-02-19 18:26 | NUR ---
Problems reprioritized. Patient report given, questions answered & plan of care reviewed with Hoda RN.
[2021-02-19] MEDS: polyethylene glycol 3350 17gm powd pack OGT SCH (22:57)
[2021-02-20] VITALS (8 sets, daily range): BP systolic 83–139; BP diastolic 31–64
[2021-02-20] MEDS: midazolam 100mg in NS 100ml 100 ML IV PRN ×2 (00:18→06:29)
[2021-02-20] MEDS: heparin 25,000 UNIT/250ml bag 250 ML IV SCH (00:26)
[2021-02-20] MEDS: mineral oil/petrolatum ophthal oint EACHEYE SCH (02:00)
[2021-02-20] MEDS: DOBUTamine-DoBUTrex 500mg/D5W 250 ML IV SCH (02:47)
[2021-02-20] MEDS: VANCOMYCIN LEVEL IV SCH (03:00)
[2021-02-20 03:05] LABS: ABG BASE EXCESS -10.7 mmol/L (-2.0-2.0); ABG HCO3 21.5 mmol/L (22.0-26.0); ABG OXYGEN SATURATION 76.5 % (94-97); ABG PCO2 (T) 78.3 mmHg (35.0-48.0); ABG PO2 (T) 53.7 mmHg (75.0-100.0); FCOHb 0.5 % (0.0-3.9); FMetHb 0.4 % (0.0-1.5); FO2Hb 75.8 % (94-97); PATIENT TEMPERATURE 36.7; PEEP 16 cm H2O; RESPIRATORY RATE 30 b/min; TIDAL VOLUME 500 mL; TOTAL HEMOGLOBIN 15.6 G/dl (14.0-18.0)
[2021-02-20 03:18] LABS: ALANINE AMINOTRANSFERASE 68 U/L (12-78); ALBUMIN 1.8 G/DL (3.4-5.0); ALBUMIN/GLOBULIN RATIO 0.5 (1.1-1.5); ALKALINE PHOSPHATASE 75 IU/L (46-116); ANION GAP 18 (8-16); ASPARTATE AMINO TRANSFERASE 75 U/L (10-37); BILIRUBIN,TOTAL 1.1 MG/DL (0.1-1.0); BLOOD UREA NITROGEN 119 MG/DL (7-18); BUN/CREATININE RATIO 14.4 (5.4-32.0); CHLORIDE 96 MMOL/L (99-107); CREATININE 8.26 MG/DL (0.60-1.10); GLUCOSE 183 MG/DL (70-104); SODIUM 137 MMOL/L (135-145); TOTAL CARBON DIOXIDE 22.7 MMOL/L (24-32); TOTAL PROTEIN 5.4 G/DL (6.4-8.2); VANCOMYCIN,RANDOM 22.7 UG/ML; eGFR 7 ML/MIN
[2021-02-20 03:35] LABS: POTASSIUM 6.8 MMOL/L (3.5-5.1)
[2021-02-20] MEDS: fentaNYL/PF inj 2,500 MCG in normal saline 250ml IV soln 200 ML IV PRN (03:40)
[2021-02-20] MEDS: methylPREDNISolone sod succ 125mg/2ml vial IV SCH (04:00)
[2021-02-20] MEDS: insulin regular, human U-100 3ml vial - multi-dose SQ SCH (04:05)
[2021-02-20] MEDS: NORepinephrine 8mg/ 250ml NS 250 ML IV SCH ×2 (04:51→06:28)
--- NOTE | 2021-02-20 06:41 | NUR ---
Dr Woods was contacted by charge nurse on several occasions due to pt's decline (decreased O2, decreased BP, and increased HR. Provider was also notified by charge nurse of critical lab (k+ and calcium). Pt will continue to be monitored and will exhaust all avenues to stabilize pt. Pt's Family will be contacted for update.
[2021-02-20] MEDS ORDERED: normal saline 1000ml 100 ML IV PRN (08:00)
[2021-02-20] MEDS ORDERED: heparin 1,000 units/ml 10ml inj HE ONE ×2 (08:00)
[2021-02-20] MEDS ORDERED: cefepime inj. 0.5 GM in normal saline 100ml IV soln 100 ML IV SCH (08:00)
[2021-02-20] MEDS ORDERED: albumin (human) 25% 100ml IV 100 ML IV PRN (08:00)
--- NOTE | 2021-02-20 08:43 | NUR ---
Received report from Hoda DIEGO this AM at 0600. Patient's o2 saturation in the low 60s and HR in the 150s. X-Ray in the room and Left pneumothorax apparent. Upon further assessment of left sided chest tube, suction not working appropriately. Chest tube repositioned and fixed with adequate return of suction; o2 saturation improved from the 60s to 70s and HR down to 130s. During standard AM care, patient's HR rapidly began to drop from the 120s to the 60s and eventually to the 30s with what appeared to be PEA. A code blue was called and CPR initiated. After multiple rounds of CPR and medications, Dr. Hernandez called the code and the patient was pronounced at 0739. Cheryl, the , was contacted and will be arriving at the hospital soon. [facility] [facility] called with Reference #[id number]. Patient reportedly not a donor per [employer].
--- NOTE | 2021-02-20 10:26 | NUR ---
Family came to visit and take belongings including patient's cell phone, ring, and clothing. [facility] called for mortuary services.
== END 2021-02-20 07:39 | DRG 870 ==
LOC: ER 09:30 → ED HOLD 13:51 → CICU 2S 21:52
PROVIDERS: ADMIT Surgery; ATTEND Surgery
PROC: 03HY32Z Insertion of Monitoring Device into Upper Artery, Percutaneous Approach (ICD-10-PCS; principal; 2021-02-04)
PROC: 5A1955Z Respiratory Ventilation, Greater than 96 Consecutive Hours (ICD-10-PCS; 2021-02-04)
PROC: 4A133B1 Monitoring of Arterial Pressure, Peripheral, Percutaneous Approach (ICD-10-PCS; 2021-02-04)
PROC: 4A133J1 Monitoring of Arterial Pulse, Peripheral, Percutaneous Approach (ICD-10-PCS; 2021-02-04)
PROC: 0BH17EZ Insertion of Endotracheal Airway into Trachea, Via Natural or Artificial Opening (ICD-10-PCS; 2021-02-04)
PROC: 0W9B30Z Drainage of Left Pleural Cavity with Drainage Device, Percutaneous Approach (ICD-10-PCS; 2021-02-04)
PROC: 5A09357 Assistance with Respiratory Ventilation, Less than 24 Consecutive Hours, Continuous Positive Airway Pressure (ICD-10-PCS; 2021-02-04)
PROC: 06HY33Z Insertion of Infusion Device into Lower Vein, Percutaneous Approach (ICD-10-PCS; 2021-02-05)
PROC: B54BZZA Ultrasonography of Right Lower Extremity Veins, Guidance (ICD-10-PCS; 2021-02-05)
PROC: 0W9930Z Drainage of Right Pleural Cavity with Drainage Device, Percutaneous Approach (ICD-10-PCS; 2021-02-06)
PROC: B32T1ZZ Computerized Tomography (CT Scan) of Left Pulmonary Artery using Low Osmolar Contrast (ICD-10-PCS; 2021-02-06)
PROC: B3201ZZ Computerized Tomography (CT Scan) of Thoracic Aorta using Low Osmolar Contrast (ICD-10-PCS; 2021-02-06)
PROC: B32S1ZZ Computerized Tomography (CT Scan) of Right Pulmonary Artery using Low Osmolar Contrast (ICD-10-PCS; 2021-02-06)
PROC: 5A2204Z Restoration of Cardiac Rhythm, Single (ICD-10-PCS; 2021-02-07)
PROC: 06HY33Z Insertion of Infusion Device into Lower Vein, Percutaneous Approach (ICD-10-PCS; 2021-02-08)
PROC: B54BZZA Ultrasonography of Right Lower Extremity Veins, Guidance (ICD-10-PCS; 2021-02-08)
PROC: 5A1D70Z Performance of Urinary Filtration, Intermittent, Less than 6 Hours Per Day (ICD-10-PCS; 2021-02-11)
PROC: 5A1D70Z Performance of Urinary Filtration, Intermittent, Less than 6 Hours Per Day (ICD-10-PCS; 2021-02-12)
PROC: 5A1D70Z Performance of Urinary Filtration, Intermittent, Less than 6 Hours Per Day (ICD-10-PCS; 2021-02-13)
PROC: 5A1D70Z Performance of Urinary Filtration, Intermittent, Less than 6 Hours Per Day (ICD-10-PCS; 2021-02-14)
PROC: 5A1D70Z Performance of Urinary Filtration, Intermittent, Less than 6 Hours Per Day (ICD-10-PCS; 2021-02-15)
PROC: 5A1D70Z Performance of Urinary Filtration, Intermittent, Less than 6 Hours Per Day (ICD-10-PCS; 2021-02-16)
PROC: 5A1D70Z Performance of Urinary Filtration, Intermittent, Less than 6 Hours Per Day (ICD-10-PCS; 2021-02-17)
PROC: 5A1D70Z Performance of Urinary Filtration, Intermittent, Less than 6 Hours Per Day (ICD-10-PCS; 2021-02-18)
PROC: 5A1D70Z Performance of Urinary Filtration, Intermittent, Less than 6 Hours Per Day (ICD-10-PCS; 2021-02-19)
DX: A41.9 Sepsis, unspecified organism (principal); U07.1 COVID-19; J12.82 Pneumonia due to coronavirus disease 2019; J80 Acute respiratory distress syndrome; R65.21 Severe sepsis with septic shock; J93.9 Pneumothorax, unspecified; I47.1 Supraventricular tachycardia; N17.9 Acute kidney failure, unspecified; I42.0 Dilated cardiomyopathy; E87.2 Acidosis; E87.1 Hypo-osmolality and hyponatremia; J90 Pleural effusion, not elsewhere classified; J93.82 Other air leak; E66.01 Morbid (severe) obesity due to excess calories; D75.1 Secondary polycythemia; D69.6 Thrombocytopenia, unspecified; I48.91 Unspecified atrial fibrillation; Z77.22 Contact with and (suspected) exposure to environmental tobacco smoke (acute) (chronic); N18.9 Chronic kidney disease, unspecified; E87.5 Hyperkalemia; R73.9 Hyperglycemia, unspecified; R57.0 Cardiogenic shock; I50.9 Heart failure, unspecified; Z79.899 Other long term (current) drug therapy; Z79.4 Long term (current) use of insulin; Z68.39 Body mass index [BMI] 39.0-39.9, adult
CPT/HCPCS: 36415; 36600; 71045; 71275; 74174; 80048; 80053; 80069; 80162; 80202; 81001; 82330; 82570; 82728; 82800; 82803; 82948; 83036; 83605; 83615; 83735; 84100; 84132; 84134; 84145; 84300; 84478; 85007; 85008; 85018; 85025; 85027; 85379; 85384; 85610; 85730; 86140; 86703; 87040; 87070; 87077; 87081; 87186; 87207; 87340; 87635; 93005; 93306; 94002; 94003; 94660; 94760; 94799; 99285; C9803; E1594; G0257; G0378; J0131; J0153; J0171; J0456; J0461; J0692; J0696; J1100; J1160; J1250; J1644; J1650; J1815; J1940; J2060; J2150; J2212; J2270; J2704; J2765; J2930; J3010; J3370; J3490; J7030; J7040; J7050; J7120; J8540; P9045; Q9967